=== PATIENT | female | born 1955 | race Caucasian/White ===

== ENCOUNTER 2017-11-19 14:20 | Inpatient (IN) ==
--- NOTE | 2017-11-19 14:56 | Emergency Department Note ---
Disposition Clinical Impression: Elevated troponin Chest pain Qualifiers: Chest pain type: other chest pain Qualified Code(s): R07.89 - Other chest pain Disposition: Admitted As Inpatient Condition: Good Time of Disposition: 16:18 Chest Pain HPI - General Chief Complaint: ED Chest Pain Stated Complaint: CP Time Seen by Provider: 11/19/17 14:24 Source: patient, EMS Mode of arrival: ambulatory Limitations: no limitations Vital Signs Reviewed: Yes Nursing Notes Reviewed: Yes - History of Present Illness HPI Narrative: Patient is a 61-year-old female with past medical history of diabetes, hypertension, hyperlipidemia. She presents today as a transfer from the [facility] due to chest pain and elevated troponin level. The patient herself states that over the past week, she has had midsternal chest discomfort described as a pressure that radiates up to bilateral jaws and right arm. She states that this happens both at rest and with exertion, lasts for about 20-30 minutes and goes away. Also has associated shortness of breath, nausea, sweating during these episodes. Rates it a 10 out of 10 when occurring. She states that she had 2 episodes of this chest pain today that both occurred at rest with the above description. One occurred around 9:30 AM and lasted 30 minutes. The second occurred around 12 or 12:30 and lasted 20-30 minutes. She states that she went to the [facility], was given aspirin. She has not had any nitroglycerin at this time. She currently rates her pain as 0 out of 10. She has had no return of her chest pain since around 12:30 today. Denies any current shortness breath, nausea, vomiting, fevers, diarrhea, abdominal pain , dysuria, hematuria. Denies any history of WI or cardiac stents. Severity scale (1-10): 5 - Related Data Home Medications Medication Instructions Recorded Confirmed ALPRAZolam [Xanax 0.5 MG Tablet] 0.5 mg PO QID 11/19/17 11/19/17 Alendronate Sodium [Fosamax] 70 mg PO QWEEK 11/19/17 11/19/17 Aspirin [Lo-Dose Aspirin EC] 81 mg PO DAILY 11/19/17 11/19/17 Bisacodyl [Dulcolax] 10 mg RC DAILY PRN 11/19/17 11/19/17 Cetirizine HCl [24Hour Allergy] 10 mg PO DAILY 11/19/17 11/19/17 Docusate [Colace] 100 mg PO BID 11/19/17 11/19/17 Gemfibrozil [Lopid] 600 mg PO BIDWM 11/19/17 11/19/17 GlipiZIDE [Glipizide ER] 10 mg PO DAILY 11/19/17 11/19/17 Ibuprofen [Advil] 200 mg PO DAILY PRN 11/19/17 11/19/17 Levothyroxine [Synthroid] 50 mcg PO 0630 11/19/17 11/19/17 Lisinopril [Zestril] 20 mg PO DAILY 11/19/17 11/19/17 Omeprazole [PriLOSEC] 20 mg PO BIDAC 11/19/17 11/19/17 Ranitidine HCl [Acid Mastic Floor Layer] 150 mg PO HS 11/19/17 11/19/17 Saxagliptin HCl [Onglyza] 5 mg PO BID 11/19/17 11/19/17 Trazodone HCl 200 mg PO HS 11/19/17 11/19/17 buPROPion HCl [Zyban] 150 mg PO BID 11/19/17 11/19/17 cloNIDine HCl [Clonidine HCl] 0.2 mg PO TID 11/19/17 11/19/17 hydroCHLOROthiazide 25 mg PO DAILY 11/19/17 11/19/17 [Hydrochlorothiazide] Allergies Allergy/AdvReac Type Severity Reaction Status Date / Time metformin AdvReac See Verified 11/19/17 16:27 Comments All systems ED: reviewed and negative except as stated. Constitutional: Reports: other (diaphoresis). Denies: fever Cardiovascular: Reports: chest pain. Denies: palpitations Respiratory: Reports: dyspnea. Denies: cough Gastrointestinal: Reports: nausea. Denies: abdominal pain, diarrhea, constipation Genitourinary: Denies: urgency, dysuria Neurological: Denies: headache, weakness, numbness Chest Pain PMH - Past Medical History Medical history: Reports: COPD, diabetes, GERD, hypertension, osteoporosis, thyroid disease Psychiatric history: Reports: anxiety, bipolar, depression, panic disorder - Social History Smoking Status: Current every day smoker Alcohol use: Reports: occasionally Drug use: Reports: none Physical Exam - General Limitations: no limitations General appearance: alert - Head Head exam: atraumatic, normocephalic, normal inspection - Eye Eye exam: Present: normal appearance, PERRL, EOMI - ENT ENT exam: normal exam, normal oropharynx, mucous membranes moist - Neck Neck exam: Present: normal inspection, full ROM, trachea midline - Chest Chest inspection: Present: normal inspection, symmetric chest wall rise - Respiratory Respiratory exam: Present: normal lung sounds bilaterally - Cardiovascular Cardiovascular exam: Present: regular rate, normal rhythm, normal heart sounds - Abdominal Exam Abdominal exam: Present: soft, Non-Tender. Absent: tenderness, distention, guarding, rebound, rigidity - Extremities Exam Extremities exam: Present: normal inspection, full ROM. Absent: tenderness, pedal edema - Neurological Exam Neurological exam: Present: alert, oriented X3 - Psychiatric Psychiatric exam: Present: normal affect, normal mood - Skin Skin exam: Present: warm, dry, intact, normal color Course Course Narrative: Vitals within normal limits. Physical exam benign, heart regular rate and rhythm, lungs clear to auscultation, abdomen soft and nontender. Blood work from the [facility] shows elevated troponin at 0.45. Basic labs from the [facility] shows white blood cell count of 6.7, hemoglobin 13.5, hematocrit 39.5, platelets 224. Creatinine 1.07. Chest x-ray shows trace bilateral pleural effusions but no evidence of focal infiltrate. We will repeat troponin here. Again, patient currently rates her chest pain as 0 out of 10. Aspirin has artery been given. EKG shows chronic ST elevation in lead 2 , 3, aVF compared to previous EKG in 2006. However, there are ST elevations in V3 through V6 with a new T-wave inversion in lead V6. I talk with balloon design printer , Dr. Delgadillo, discussed patient's case, vitals, lab work with elevated troponin and new ST elevations. Since patient is currently not having any chest pain or shortness of breath, he did not feel that heart catheter was necessary at this time. He did recommend starting heparin if there were no contraindications. I went over contraindications with the patient and her currently none. We will start the patient on heparin drip. Currently waiting on repeat troponin and then will admit the patient to medicine. Consult for cardiology has been placed. Vital Signs Temperature 98.3 F 11/19/17 14:22 Pulse Rate 58 11/19/17 14:22 Respiratory Rate 16 11/19/17 14:22 Blood Pressure 122/55 11/19/17 14:22 O2 Sat by Pulse Oximetry 96 11/19/17 14:22 Temperature 98.3 F 11/19/17 14:22 Pulse Rate 58 11/19/17 14:22 Respiratory Rate 16 11/19/17 14:22 Blood Pressure 122/55 11/19/17 14:22 O2 Sat by Pulse Oximetry 97 11/19/17 14:32 Oxygen Delivery Oxygen Delivery Room Air Chest Pain - MDM Narrative Medical decision making narrative: Vitals within normal limits. Physical exam benign, heart regular rate and rhythm, lungs clear to auscultation, abdomen soft and nontender. Blood work from the [facility] shows elevated troponin at 0.45. Basic labs from the [facility] shows white blood cell count of 6.7, hemoglobin 13.5, hematocrit 39.5, platelets 224. Creatinine 1.07. Chest x-ray shows trace bilateral pleural effusions but no evidence of focal infiltrate. We will repeat troponin here. Again, patient currently rates her chest pain as 0 out of 10. Aspirin has artery been given. EKG shows chronic ST elevation in lead 2 , 3, aVF compared to previous EKG in 2006. However, there are ST elevations in V3 through V6 with a new T-wave inversion in lead V6. I talk with balloon design printer , Dr. Delgadillo, discussed patient's case, vitals, lab work with elevated troponin and new ST elevations. Since patient is currently not having any chest pain or shortness of breath, he did not feel that heart catheter was necessary at this time. He did recommend starting heparin if there were no contraindications. I went over contraindications with the patient and her currently none. We will start the patient on heparin drip. Currently waiting on repeat troponin and then will admit the patient to medicine. Consult for cardiology has been placed. 15:23 Trop elevated at 0.42. Will proceed with above plan and admit patient for further chest pain workup. - Medical Records Medical records reviewed: Yes I reviewed the patient's medical records. - Lab Data Lab results reviewed: Yes I reviewed the patient's lab results. Lab Results 11/19/17 11/19/17 Range/Units 14:39 16:35 PT 10.6 (9.4-12.1) Seconds INR 1.0 APTT 33.4 (26.0-36.0) Seconds Troponin I 0.42 H* (< 0.04) ng/mL - Radiology Data Radiology results reviewed: Yes I reviewed the patient's radiology results. - EKG Data EKG attestation: Yes I reviewed and interpreted this EKG. EKG results narrative: 11/19/2017 at 14:34. Sinus bradycardia. Rate 57. SC 150. QRS 93. QTC 415. Normal axis. ST elevation in 2, 3, aVF that is chronic compared to old EKG on . ST elevation in V3, V4, V5, V6 with a new T-wave inversion in V6 that is new from previous EKG on 10/06/2005. Heart Score - Score History: Highly Suspicious EKG: Non Specific repolarisation Disturbance Age: 45-65 Risk Factors: Equal/Greater than 3 risk factor or history of atherosclerotic disease Troponin: Greater than 3x normal limit HEART Score Total: 8 S.B.A.R. - S.B.A.R. Situation: Demographics, MOA Background: Presenting Complaint, Relevant PMH, Meds, & Allergies Assessment: Vital Signs, Course and respsone to treatment, Exam Concerns, Patient/Family Expectation, Pertinant Lab Results Recommendation: Barrier(s) to disposition, Recommendation based on pending studies, treatments, or consults S.B.A.R. Report Given to: Dr. Aldridge
--- NOTE | 2017-11-19 15:44 | Emergency Department Note ---
Disposition Clinical Impression: Elevated troponin Chest pain Qualifiers: Chest pain type: unspecified Qualified Code(s): R07.9 - Chest pain, unspecified Disposition: Admitted As Inpatient [facility]Primary Care Provider[facility] - Forms: ED Satisfaction Letter General Adult HPI - General Chief complaint: ED Chest Pain Stated complaint: CP Time Seen by Provider: 11/19/17 14:24 Source: patient, EMS Mode of arrival: ambulatory Limitations: no limitations - History of Present Illness Pain Scale: 5 - Related Data Allergies Allergy/AdvReac Type Severity Reaction Status Date / Time metformin AdvReac See Verified 11/19/17 14:22 Comments Constitutional: Reports: other (diaphoresis). Denies: fever Cardiovascular: Reports: chest pain. Denies: palpitations Respiratory: Reports: dyspnea. Denies: cough Gastrointestinal: Reports: nausea. Denies: abdominal pain, diarrhea, constipation Genitourinary: Denies: urgency, dysuria Neurological: Denies: headache, weakness, numbness Past Medical History - Past Medical History Medical history: Reports: COPD, diabetes, GERD, hypertension, osteoporosis, thyroid disease Psychiatric history: Reports: anxiety, bipolar, depression, panic disorder - Social History Smoking Status: Current every day smoker Alcohol use: Reports: occasionally Drug use: Reports: none Physical Exam - General Limitations: no limitations General appearance: alert Course Vital Signs Temperature 98.3 F 11/19/17 14:22 Pulse Rate 58 11/19/17 14:22 Respiratory Rate 16 11/19/17 14:22 Blood Pressure 122/55 11/19/17 14:22 O2 Sat by Pulse Oximetry 96 11/19/17 14:22 Temperature 98.3 F 11/19/17 14:22 Pulse Rate 58 11/19/17 14:22 Respiratory Rate 16 11/19/17 14:22 Blood Pressure 122/55 11/19/17 14:22 O2 Sat by Pulse Oximetry 97 11/19/17 14:32 Oxygen Delivery Oxygen Delivery Room Air Medical Decision Making - Lab Data Lab Results 11/19/17 Range/Units 14:39 Troponin I 0.42 H* (< 0.04) ng/mL Critical Care Time Critical Care Time: Yes Total Critical Care Time: 35 Attestation: Critical care performed: Time is exclusive of separately billable procedures. Time includes: direct patient care, patient reassessment, coordination of patient care, interpretation of data (laboratory data, radiology data, and respiratory data), review of patient's medical records, medical consultation and documentation of patient care. Procedures included in critical care time: Procedures excluded from critical care time: Attestation Statement - Attestation Attestation: I examined this patient and my medical decision-making was reviewed with the Resident Physician. I agree with the documented findings, disposition and treatment plan as described except to the extent set forth below. Patient to the ED with chest pain. She has been having some intermittent episodes per week. Currently pain free. Transferred from the [place] for an elevated troponin. Patient is in no acute distress on examination with clear lungs and heart regular rate and rhythm. Plan. Repeat troponin here still elevated. She has been discussed with cardiology. Starting her on a heparin drip. Patient is pain-free. She does have some acute changes on her EKG. Admitting for further cardiac workup.
[2017-11-19] MEDS ORDERED: *HR* Heparin 5,000 UNIT/ML VIAL IVP ONE (15:49)
[2017-11-19] MEDS ORDERED: *HR* Heparin 5,000 UNIT/ML VIAL IVP PRN ×2 (15:49)
[2017-11-19 16:57] LABS: Prothrombin Time 10.6 Seconds (9.4-12.1)
[2017-11-19] MEDS ORDERED: Naloxone 0.4 MG/ML INJ IVP PRN (16:57)
[2017-11-19 17:00] LABS: Activated Partial Thrombo Time 33.4 Seconds (26.0-36.0)
[2017-11-19] MEDS ORDERED: Ipratropium/Albuterol Neb 3 ML IH PRN (17:09)
[2017-11-19] MEDS: Heparin 25,000 UNIT/500 ML D5W 25,000 UNIT/500 ML BAG IVC SCH (17:10)
[2017-11-19] MEDS ORDERED: Bisacodyl 10 MG RECTAL SUPPOSITORY RC PRN (17:12)
[2017-11-19] MEDS ORDERED: Dextrose Gel 15 GM/37.5 ML TUBE PO PRN ×2 (17:13)
[2017-11-19] MEDS ORDERED: *HR* Dextrose 50 % in Water (Syg) 50 ML SYRINGE IVP PRN (17:13)
[2017-11-19] MEDS ORDERED: D5% in Water 1,000 ML IVC PRN (17:13)
[2017-11-19] MEDS ORDERED: Nitroglycerin 0.4 MG TAB.SUBL SL PRN (17:14)
[2017-11-19] MEDS ORDERED: NON-FORMULARY MEDICATION 1 EACH EACH (Alendronate Sodium [Fosamax] 70 MG) PO SCH (17:15)
--- NOTE | 2017-11-19 17:28 | Internal Med History&Physical ---
Date of Encounter: 11/19/17 Time of Encounter: 16:30 Internal Medicine - H&P: HPI Chief complaint: CP Admitted From: Emergency Dept Plans for Post Hospital Care: Home History of present illness: Ms. Causey is a 61 year old female w/PMH of COPD, diabetes, GERD, HTN, osteoporosis, and thyroid disease presents from the ED with chief complaint of chest pain for the past 2 weeks that she describes as constant that became worse this morning. Pain is described as centralized pressure that radiates up to her neck and bilateral jaws, bilateral ears, and right arm accompanied by headache. No alleviating or aggravating factors. Patient was transferred from [facility] due to elevated troponin of 0.42. Associated symptoms: SOB, nausea, diaphoresis. Patient denies recent cardiac workup. Reports intermittent chest pain, weakness, nausea, and vomiting but denies recent illness, fever, chills, changes in vision, palpitations, abdominal pain, diarrhea, constipation, dizziness, lightheadedness, pre-syncope, or syncope. Past Med Surg Social Fam HX - Past Medical History Source: patient, old records reviewed Medical history: COPD, diabetes, GERD, hypertension, osteoporosis, thyroid disease Psychiatric history: anxiety, bipolar, depression, panic disorder - Social History Smoking Status: Current every day smoker Alcohol use: occasionally Drug use: none Current living situation: Home Activity Level: Independent ambulation Recent Out of Country Travel Within the Last 8 Weeks: No Exposure or Possible Exposure to Illness During Travel: No - Family History Father Race: Family Member Ethnicity: Non- Living Status: Age at : 67 Cause of : Metastatic cancer Hx Family Cancer: Yes (Metastatic) Mother Race: Family Member Ethnicity: Non- Living Status: Age at : 67 Cause of : AL Hx Family Cardiac Disorders: Yes (AL, HD) Brother History Unknown: Yes Race: Family Member Ethnicity: Non- Living Status: Still Living Sister History Unknown: Yes Race: Family Member Ethnicity: Non- Living Status: Still Living Internal Medicine - H&P: Meds ALPRAZolam [Xanax 0.5 MG Tablet] 0.5 mg PO QID 11/19/17 [History] Alendronate Sodium [Fosamax] 70 mg PO QWEEK 11/19/17 [History] Aspirin [Lo-Dose Aspirin EC] 81 mg PO DAILY 11/19/17 [History] Bisacodyl [Dulcolax] 10 mg RC DAILY PRN 11/19/17 [History] Cetirizine HCl [24Hour Allergy] 10 mg PO DAILY 11/19/17 [History] Docusate [Colace] 100 mg PO BID 11/19/17 [History] Gemfibrozil [Lopid] 600 mg PO BIDWM 11/19/17 [History] GlipiZIDE [Glipizide ER] 10 mg PO DAILY 11/19/17 [History] Ibuprofen [Advil] 200 mg PO DAILY PRN 11/19/17 [History] Levothyroxine [Synthroid] 50 mcg PO 0630 11/19/17 [History] Lisinopril [Zestril] 20 mg PO DAILY 11/19/17 [History] Omeprazole [PriLOSEC] 20 mg PO BIDAC 11/19/17 [History] Ranitidine HCl [Acid Materials Branch Chief] 150 mg PO HS 11/19/17 [History] Saxagliptin HCl [Onglyza] 5 mg PO BID 11/19/17 [History] Trazodone HCl 200 mg PO HS 11/19/17 [History] buPROPion HCl [Zyban] 150 mg PO BID 11/19/17 [History] cloNIDine HCl [Clonidine HCl] 0.2 mg PO TID 11/19/17 [History] hydroCHLOROthiazide [Hydrochlorothiazide] 25 mg PO DAILY 11/19/17 [History] 3 Allergy/AdvReac Type Severity Reaction Status Date / Time metformin AdvReac See Verified 11/19/17 16:27 Comments All Systems PM: A 10-system review of systems was performed and is negative for pertinent findings except as documented above in the HPI. - Constitutional Constitutional: as per HPI, fatigue, weakness, no chills, no fever(s), no night sweats - EENT Eyes: no change in vision, no discharge, no pain, no photophobia Ears: no ear discharge, no ear pain, no tinnitus Nose, mouth and throat: no dysphagia, no nasal discharge, no neck pain, no sore throat - Breasts Breasts: as per HPI - Cardiovascular Cardiovascular ROS IM: as per HPI, chest pain, diaphoresis, dyspnea, dyspnea on exertion, no lightheadedness, no palpitations, no syncope - Respiratory Respiratory: as per HPI, dyspnea, dyspnea on exertion, no cough, no wheezing, no excessive phlegm production - Gastrointestinal Gastrointestinal: as per HPI, nausea, vomiting, no abdominal pain, no diarrhea, no hematemesis, no hematochezia, no melena - Genitourinary Genitourinary: no change in urinary stream, no dysuria, no flank pain, no hematuria Menstruation: as per HPI - Musculoskeletal Musculoskeletal ROS IM: no numbness, no tingling - Integumentary Integumentary IM: no rash, no unusual bruising - Neurological Neurological ROS: as per HPI, weakness, no confusion, no convulsions, no focal weakness, no numbness, no tingling, no tremor(s) - Psychiatric Psychiatric: as per HPI - Endocrine Endocrine IM: as per HPI - Hematologic/Lymphatic Hematologic/Lymphatic: no easy bruising - Allergic/Immunologic Allergic/Immunologic: as per HPI - Constitutional Vitals: Temp Pulse Resp BP Pulse Ox 98.3 F 58 16 122/55 97 11/19/17 14:22 11/19/17 14:22 11/19/17 14:22 11/19/17 14:22 11/19/17 14:32 General appearance: Present: cooperative, mild distress, A&O X 3, pleasant, obese, answers questions appropriately - Head Head exam: Present: atraumatic, normocephalic - Eye Eye exam: Present: PERRL, conjuntiva pink, sclera anicteric Pupils: Present: PERRL - ENT ENT exam: Present: normal exam - Neck Neck exam general surgery: Present: normal inspection, supple, trachea midline. Absent: lymphadenopathy - Respiratory Respiratory exam: Present: CTAB. Absent: accessory muscle use, rales, rhonchi, wheezes - Cardiovascular Cardiovascular exam: Present: bradycardia, +S1, +S2. Absent: diastolic murmur, gallop, rubs, systolic murmur - GI/Abdominal GI/Abdominal exam: Present: normal bowel sounds, soft, no peritoneal signs. Absent: distended, tenderness - Rectal Rectal exam: Present: deferred - Additional comments: exam deferred. - Extremities Exam Extremities exam: Present: warm, radial pulses palpable and symmetrical. Absent : calf tenderness, cyanotic, pedal edema - Back Exam Back exam: Present: normal inspection - Neurological Exam Neurological exam: Present: CN II-XII intact, oriented X3, no focal deficits. Absent: pronater drift, facial droop, speech deficit - Psychiatric Psychiatric exam: Present: normal affect, normal mood - Skin Skin exam: Present: dry, intact Internal Med - H&P Results - EKG Data EKG shows normal: sinus rhythm Rate: bradycardia - EKG Data Prior EKG available for review: yes Interpretation IM: suggestive of ischemia EKG comments: 11/19/17 17:38 EKG dated 10/06/05 show sinus bradycardia and normal ECG except for rate. EKG dated 11/19/17 shows sinus bradycardia with ST deviation and moderate T- wave abnormality. Consider lateral ischemia. - Assessment and plan (1) Chest pain Current Visit: Yes Status: Acute Assessment and plan: Acute CP for the past two weeks that pt. reports as becoming much worse this morning. States she thought sx may be GERD-related and this is why she waited. Describes CP as centralized pressure with radiation up to neck and bilateral jaws, bilateral ears, and right arm. Associated symptoms: Headache, SOB, nausea , and diaphoresis. Denies recent cardiac workup. Cardiology consulted in the ED and I appreciate the consult. Patient placed on low-dose heparin drip due to initial troponin 0.42. Aspirin. Continue statin. Nitroglycerin when necessary. Continuous cardiac telemetry. Echocardiogram. Supplemental O2 with titration and SPO2 monitoring. Lipid panel in a.m. labs. Patient discussed with Dr. Aldridge who agrees w/plan od care. Pt. is high risk for further morbidity d/t current CP and sx, recurrent sx for two weeks, familial hx of AL, hx; and risk factors of DM, HTN, and current tobacco abuse. Inpatient. Qualifiers: Chest pain type: other chest pain Qualified Code(s): R07.89 - Other chest pain; R07.8 - Other chest pain (2) Elevated troponin Current Visit: Yes Status: Acute Assessment and plan: Acutely elevated initial troponin of 0.42 on admission. Will trend x2. Pt. reports intermittent CP. Pt. placed on low-dose heparin drip per Cardiology. Will monitor pt. for signs of bleeding. Nitro SL PRN. Aspirin. Continue statin. Continuous cardiac telemetry. (3) COPD (chronic obstructive pulmonary disease) Current Visit: Yes Status: Chronic Assessment and plan: Hx of chronic COPD. Stable. DuoNebs Q6HR PRN. Supplemental O2 w/titration and SpO2 monitoring. Qualifiers: COPD type: unspecified COPD Qualified Code(s): J44.9 - Chronic obstructive pulmonary disease, unspecified (4) GERD (gastroesophageal reflux disease) Current Visit: Yes Status: Chronic Assessment and plan: Hx of chronic GERD. IVP Protonix 40 mg BID. IVP Zofran 4 mg. Q6HR PRN for N/V. Qualifiers: Esophagitis presence: esophagitis presence not specified Qualified Code(s) : K21.9 - Gastro-esophageal reflux disease without esophagitis (5) Diabetes Current Visit: Yes Status: Chronic Assessment and plan: Hx of chronic diabetes controlled by oral anti-hyperglycemic medications. Hold patient's oral antihyperglycemic medications and administer low-dose correction sliding scale insulin and hypoglycemic protocol. BG checks before meals at bedtime. A1c in a.m. labs. Qualifiers: Diabetes mellitus type: type 2 Diabetes mellitus director of field coordination insulin use: without halfway use Diabetes mellitus complication status: with unspecified complications Qualified Code(s): E11.8 - Type 2 diabetes mellitus with unspecified complications (6) HTN (hypertension) Current Visit: Yes Status: Chronic Assessment and plan: Hx of chronic HTN. Monitor pt. and VS. Continue patient's hydrochlorothiazide and Zestril. Qualifiers: Hypertension type: essential hypertension Qualified Code(s): I10 - Essential (primary) hypertension (7) Thyroid disease Current Visit: Yes Status: Chronic Assessment and plan: Hx of chronic thyroid disease. TSH and Free T4 in a.m. labs. Continue pts. Synthroid. (8) DVT prophylaxis Current Visit: Yes Status: Acute Assessment and plan: Pt. placed on heparin drip for currently elevated troponin of 0.42. Monitor pt. for signs of bleeding. - Time Spent With Patient Total time spent is greater than 50% in coordination of care (as documented) at patient's floor/unit and/or counseling patient: Greater than 35 minutes
[2017-11-19 19:24] LABS: Basophils # 0.1 K/mcL (0.0-0.2); Basophils % 0.6 %; Eosinophils # 0.3 K/mcL (0.0-0.6); Eosinophils % 3.2 %; Hematocrit 42.4 % (35.3-44.9); Hemoglobin 14.1 g/dL (11.5-15.4); Immature Granulocytes % 0.6 % (0-4); Lymphocytes # 2.8 K/mcL (0.6-4.6); Lymphocytes % 34.2 %; Mean Corpuscular HGB Conc 33.3 g/dL (31.6-35.5); Mean Corpuscular Volume 90.2 fL (83.0-100.0); Mean Platelet Volume 10.7 fL (9.4-12.4); Monocytes # 0.6 K/mcL (0.0-1.3); Monocytes % 6.9 %; Neutrophils # 4.5 K/mcL (1.6-8.9); Platelet Count 255 K/mcL (140-400); Red Cell Distribution Width 12.5 % (11.5-14.5); Segmented Neutrophils % 54.5 %
[2017-11-19] MEDS: Pantoprazole 40 MG VIAL IVP SCH (19:42)
[2017-11-19 19:48] LABS: Alanine Aminotransferase 16 Units/L (7-52); Albumin 4.5 g/dL (3.5-5.7); Albumin/Globulin Ratio 1.5 (1.1-2.2); Alkaline Phosphatase 106 Units/L (34-104); Aspartate Amino Transferase 13 Units/L (13-39); BUN/Creatinine Ratio 35 (6-26); Bilirubin,Total 0.4 mg/dL (0.3-1.0); Blood Urea Nitrogen 26 mg/dL (8-23); Calcium 10.6 mg/dL (8.6-10.3); Carbon Dioxide 26 mEq/L (23-29); Chloride 101 mEq/L (98-107); Glucose 236 mg/dL (70-105); Osmolality,Calculated 290 (280-300); Potassium 4.2 mEq/L (3.5-5.1); Sodium 134 mEq/L (136-145); Total Protein 7.5 g/dL (6.4-8.9); eGFR For African Americans > 60 (> 60); eGFR For Non-African Americans > 60 (> 60)
[2017-11-19] MEDS: cloNIDine HCl 0.1 MG TABLET PO SCH (20:14)
[2017-11-19] MEDS: BuPROPion SR (12 HR) 150 MG TABLET PO SCH (20:14)
[2017-11-19] MEDS: ALPRAZolam 0.5 MG TABLET PO SCH (20:17)
[2017-11-19] MEDS: Ondansetron 4 MG/2 ML VIAL IVP PRN (21:44)
[2017-11-19] MEDS: Insulin LISPRO 300 UNITS/3 ML VIAL SQ SCH (21:44)
[2017-11-19] MEDS: traZODone 50 MG TABLET PO SCH (21:51)
[2017-11-20] MEDS: Pantoprazole 40 MG VIAL IVP SCH ×2 (05:59→17:11)
[2017-11-20] MEDS: Ondansetron 4 MG/2 ML VIAL IVP PRN (06:57)
[2017-11-20] MEDS ORDERED: *HR* HYDROcodone/Acet 5/325 mg TABLET PO ONE (07:03)
[2017-11-20 07:30] LABS: Alanine Aminotransferase 13 Units/L (7-52); Albumin 3.6 g/dL (3.5-5.7); Albumin/Globulin Ratio 1.3 (1.1-2.2); Alkaline Phosphatase 97 Units/L (34-104); Aspartate Amino Transferase 13 Units/L (13-39); BUN/Creatinine Ratio 34 (6-26); Bilirubin,Total 0.3 mg/dL (0.3-1.0); Blood Urea Nitrogen 27 mg/dL (8-23); Carbon Dioxide 24 mEq/L (23-29); Chloride 103 mEq/L (98-107); Chol/HDL Ratio 8.8 (0-4.9); Cholesterol 315 mg/dL (< 200); Globulin 2.8 g/dL (2.4-3.5); Glucose 273 mg/dL (70-105); HDL Cholesterol 36 mg/dL (40-59); Magnesium 1.7 mg/dL (1.6-2.6); Osmolality,Calculated 297 (280-300); Potassium 4.1 mEq/L (3.5-5.1); Sodium 136 mEq/L (136-145); Total Protein 6.4 g/dL (6.4-8.9); Triglycerides 712 mg/dL (< 150); eGFR For African Americans > 60 (> 60); eGFR For Non-African Americans > 60 (> 60)
[2017-11-20 07:34] LABS: Basophils # 0.1 K/mcL (0.0-0.2); Basophils % 0.8 %; Eosinophils # 0.2 K/mcL (0.0-0.6); Hematocrit 39.5 % (35.3-44.9); Hemoglobin 13.4 g/dL (11.5-15.4); Immature Granulocytes % 0.3 % (0-4); Lymphocytes # 2.6 K/mcL (0.6-4.6); Lymphocytes % 43.2 %; Mean Corpuscular HGB Conc 33.9 g/dL (31.6-35.5); Mean Corpuscular Hemoglobin 30.8 pg (28.0-33.3); Mean Corpuscular Volume 90.8 fL (83.0-100.0); Mean Platelet Volume 10.9 fL (9.4-12.4); Monocytes # 0.4 K/mcL (0.0-1.3); Monocytes % 7.3 %; Neutrophils # 2.7 K/mcL (1.6-8.9); Platelet Count 218 K/mcL (140-400); Red Blood Count 4.35 M/mcL (3.82-4.97); Red Cell Distribution Width 12.4 % (11.5-14.5); Segmented Neutrophils % 45.4 %
[2017-11-20 07:43] LABS: Thyroid Stimulating Hormone 3.513 mcIU/mL (0.340-5.600)
[2017-11-20 08:07] LABS: Activated Partial Thrombo Time 119.4 Seconds (26.0-36.0)
[2017-11-20] MEDS: Loratadine 10 MG TABLET PO SCH (08:09)
[2017-11-20] MEDS: hydroCHLOROthiazide 25 MG TABLET PO SCH (08:09)
[2017-11-20] MEDS: Aspirin Enteric Coated 81 MG Tablet PO SCH (08:09)
[2017-11-20] MEDS: ALPRAZolam 0.5 MG TABLET PO SCH ×4 (08:09→19:51)
[2017-11-20] MEDS: cloNIDine HCl 0.1 MG TABLET PO SCH ×3 (08:09→22:40)
[2017-11-20] MEDS: BuPROPion SR (12 HR) 150 MG TABLET PO SCH ×2 (08:10→19:52)
[2017-11-20] MEDS: Insulin LISPRO 300 UNITS/3 ML VIAL SQ SCH ×4 (08:10→20:35)
[2017-11-20 08:13] LABS: Heparin anti-factor XA UFH 0.69 IU/mL (0.30-0.70)
[2017-11-20] MEDS ORDERED: Lisinopril 20 MG TABLET PO SCH (09:00)
[2017-11-20] MEDS ORDERED: Heparin 1,000 UNITS/500 mL 500 ML ONE (10:06)
[2017-11-20] MEDS ORDERED: 0.9 % Sodium Chloride 1,000 ML ONE ×2 (10:06→10:29)
[2017-11-20] MEDS ORDERED: *HR* Heparin 10,000 UNIT/10 ML VIAL ONE (10:06)
[2017-11-20] MEDS ORDERED: ISOVUE-370 200 ML INFUS..BTL IV ONE (10:06)
--- NOTE | 2017-11-20 10:07 | Cardiology History & Physical ---
Date of Encounter: 11/20/17 Time of Encounter: 10:00 Assessment and Plan (1) NSTEMI (non-ST elevated myocardial infarction) Current Visit: Yes Status: Acute A/R/B of C discussed with her including 1% chance of ME//CVA/CABG/TOMASZ/ bleeding. Smoking cessation counseled. Pt aware and agreeable with proceeding. The assessment and plan as outlined above was discussed with the patient and/or family members who expressed understanding and agreement. All questions were answered. (2) COPD (chronic obstructive pulmonary disease) Current Visit: Yes Status: Chronic Smoking cessation counseled. The assessment and plan as outlined above was discussed with the patient and/or family members who expressed understanding and agreement. All questions were answered. Qualifiers: COPD type: unspecified COPD Qualified Code(s): J44.9 - Chronic obstructive pulmonary disease, unspecified (3) Diabetes Current Visit: Yes Status: Chronic The assessment and plan as outlined above was discussed with the patient and/or family members who expressed understanding and agreement. All questions were answered. 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 All questions were answered. Qualifiers: Hypertension type: essential hypertension Qualified Code(s): I10 - Essential (primary) hypertension History of Present Illness HPI: Ms. Causey is a 61 year old female with no previous cardiac history but is a smoking diabetic with dyslipidemia presents with 2-3 week history of retrosternal chest pressure radiating into her jaw that progressively worsened culminating in her presentation at our ED with findings of NSTEMI. Symptoms worsened with exertion and improved with rest. She denies syncope, dizziness, or palpitations. Past Med Surg Social Fam HX - Past Medical History Medical history: COPD, diabetes, GERD, hypertension, osteoporosis, thyroid disease Psychiatric history: anxiety, bipolar, depression, panic disorder - Social History Smoking Status: Current every day smoker Packs per day: 1 Alcohol use: occasionally Drug use: none - Family History Father Race: Family Member Ethnicity: Non- Living Status: Age at : 67 Cause of : Metastatic cancer Hx Family Respiratory Disorders: Yes (lung cancer with mets) Hx Family Cancer: Yes (Metastatic) Mother Race: Family Member Ethnicity: Non- Living Status: Age at : 67 Cause of : ME Hx Family Cardiac Disorders: Yes Brother History Unknown: Yes Race: Family Member Ethnicity: Non- Living Status: Still Living Sister History Unknown: Yes Race: Family Member Ethnicity: Non- Living Status: Still Living Medications and Allergies ALPRAZolam [Xanax 0.5 MG Tablet] 0.5 mg PO QID 11/19/17 [History] Alendronate Sodium [Fosamax] 70 mg PO QWEEK 11/19/17 [History] Aspirin [Lo-Dose Aspirin EC] 81 mg PO DAILY 11/19/17 [History] Bisacodyl [Dulcolax] 10 mg RC DAILY PRN 11/19/17 [History] Cetirizine HCl [24Hour Allergy] 10 mg PO DAILY 11/19/17 [History] Docusate [Colace] 100 mg PO BID 11/19/17 [History] Gemfibrozil [Lopid] 600 mg PO BIDWM 11/19/17 [History] GlipiZIDE [Glipizide ER] 10 mg PO DAILY 11/19/17 [History] Ibuprofen [Advil] 200 mg PO DAILY PRN 11/19/17 [History] Levothyroxine [Synthroid] 50 mcg PO 0630 11/19/17 [History] Lisinopril [Zestril] 20 mg PO DAILY 11/19/17 [History] Omeprazole [PriLOSEC] 20 mg PO BIDAC 11/19/17 [History] Ranitidine HCl [Acid Sales Representative [employer]] 150 mg PO HS 11/19/17 [History] Saxagliptin HCl [Onglyza] 5 mg PO BID 11/19/17 [History] Trazodone HCl 200 mg PO HS 11/19/17 [History] buPROPion HCl [Zyban] 150 mg PO BID 11/19/17 [History] cloNIDine HCl [Clonidine HCl] 0.2 mg PO TID 11/19/17 [History] hydroCHLOROthiazide [Hydrochlorothiazide] 25 mg PO DAILY 11/19/17 [History] 3 Allergy/AdvReac Type Severity Reaction Status Date / Time metformin AdvReac See Verified 11/19/17 16:27 Comments All Systems Review: The remainder of the systems were reviewed and are negative - Constitutional Constitutional: no chills, no fever(s) - EENT Eyes: no blurred vision, no loss of vision Nose, mouth and throat: no dysphagia, no epistaxis - Cardiovascular Cardiovascular: chest pain at rest, chest pain with exertion - Respiratory Respiratory: no cough, no hemoptysis - Gastrointestinal Gastrointestinal: no hematemesis, no hematochezia - Genitourinary Genitourinary: no hematuria, no nocturia - Musculoskeletal Musculoskeletal: no muscle cramps, no muscle weakness - Integumentary Integumentary: no erythema, no unusual bruising - Neurological Neurological: no syncope, no tingling - Psychiatric Psychiatric: no hallucinations, no panic attacks - Hematological/Lymphatic Hematologic/Lymphatic: no easy bleeding, no easy bruising Physical Examination Vital Signs, Last 4 Hours Temp Pulse Resp BP Pulse Ox 11/20/17 07:30 97.5 F L 62 18 109/66 95 General: Conversant HEENT: Atraumatic Neck: No JVD Cardiac: Reg Rate and Rhythm Lungs: Normal Breath Sounds Neuro: Alert and responsive Abdomen: Soft Skin: No rashes noted on visualized skin Musculoskeletal: No Chest Wall Tenderness Extremities: No Edema Results 11/20/17 06:44 11/20/17 06:44 Lab Results 11/19/17 11/19/17 11/19/17 18:48 18:48 21:25 WBC 8.2 Hgb 14.1 Hct 42.4 Plt Count 255 APTT Sodium 134 L Potassium 4.2 Chloride 101 Carbon Dioxide 26 BUN 26 H Creatinine 0.75 Glucose 236 H Calcium 10.6 H Magnesium Total Bilirubin 0.4 AST 13 ALT 16 Alkaline Phosphatase 106 H Troponin I 0.51 H* TSH 11/19/17 11/20/17 11/20/17 22:31 03:34 06:44 WBC 6.0 Hgb 13.4 Hct 39.5 Plt Count 218 APTT 79.0 H D Sodium Potassium Chloride Carbon Dioxide BUN Creatinine Glucose Calcium Magnesium Total Bilirubin AST ALT Alkaline Phosphatase Troponin I 0.63 H* TSH 11/20/17 11/20/17 11/20/17 06:44 06:44 06:44 WBC Hgb Hct Plt Count APTT 119.4 H* D Sodium 136 Potassium 4.1 Chloride 103 Carbon Dioxide 24 BUN 27 H Creatinine 0.80 Glucose 273 H Calcium 10.0 Magnesium 1.7 Total Bilirubin 0.3 AST 13 ALT 13 Alkaline Phosphatase 97 Troponin I TSH 3.513 - EKG Interpretation EKG results cardiology: personally reviewed, sinus rhythm, no diagnostic ischemia
[2017-11-20 10:13] LABS: Estimated Average Glucose 283 mg/dl; Hemoglobin A1C 11.5 %
[2017-11-20] MEDS ORDERED: *HR* Midazolam HCl 2 MG/2 ML VIAL ONE (10:28)
[2017-11-20] MEDS ORDERED: *HR* FentaNYL (PF) 100 MCG/2 ML VIAL ONE (10:29)
--- NOTE | 2017-11-20 10:45 | Pre-Sedation Evaluation ---
Pre-sedation evaluation - Pre-sedation checklist Date of procedure: 11/20/17 Procedure: Heart cath Recent Vitals: Last Vital Signs Temp 97.5 F L 11/20/17 07:30 Pulse 62 11/20/17 07:30 Resp 18 11/20/17 07:30 BP 109/66 11/20/17 07:30 Pulse Ox 95 11/20/17 07:30 H&P (including ROS) documented in medical record: Yes Previous reaction to sedatives/anesthetics: No Dietary Status: NPO after Midnight Dentition: dentures removed Possible difficult airway: No ASA Classification *see protocol: CLASS IV-Severe systemic disease/constant threat to pt's life Plan of Care: Pt appropriate candidate for procedure/moderate/conscious sedation , Risks/benefits of procedure/sedation discussed w/ patient/family, If not NPO; Risk of intake outweiged by necessity to perform procedure
[2017-11-20] MEDS ORDERED: Nitroglycerin 1,000 MCG/10 ML VIAL IV ONE (10:49)
--- NOTE | 2017-11-20 11:48 | Invasive Diagnostic Lab Proc ---
Name: Celi Causey Date of Study: 11/20/2017 Date: 1955 Ht: 66.1in Medical Record#: [id number] Age: 61 Wt: 187.39lb Gender: Female BSA: 1.95 Order #: [id number] BMI: 30.12 Physicians Procedure Physician: Shailesh James DO Referring MD: Referring MD: Indications Indication Non-Stemi Procedures Performed Procedure L HRT ARTERY/VENTRICLE ANGIO Pre-Procedure Checklist Informed consent is complete signed and on chart. Patient NPO for procedure Plan of Care Patient will tolerate the procedure without complications. Adequate level of comfort will be maintained. Hemodynamics will remain stable Patient will recover from procedure without complications. Respiratory function will be maintained. Cardiac rhythm will remain stable. Patient temperature will be maintained. Patient and/or family have verbalized understanding of the procedure. Patient Education Intravenous Access Time IV Size Location DC'd Fluid/Drip Rate Units RN 20g 1 07/02" Patent On Arrival Lt Arm No Allergies metformin NONE NO KNOWN DRUG ALLERGIES Vital Signs Time BP (mmHg) HR (bpm) O2 Sat. RR (bpm) LOC 10:43 AM / % 5 = Fully awake and oriented or at pre-proc level 10:43 AM / % 4 = Oriented but drowsy 10:58 AM / % 4 = Oriented but drowsy 10:45 AM 117 / 67 59 100 % 10:49 AM 121 / 63 60 100 % 10:54 AM 122 / 57 59 100 % 10:59 AM 111 / 60 60 100 % 11:04 AM 106 / 50 56 100 % 11:10 AM 131 / 71 57 100 % 11:15 AM 140 / 74 58 100 % Procedural Medications Time Medication Dose Units Method Given By 10:46 AM Versed 2 mg Intravenous Kennedy Santana RN 10:43 AM Oxygen 2 L/min nasal cannula Kennedy Santana RN 10:54 AM Lidocaine 2% 10 ml Subcutaneous Shailesh James DO ASA Classification: CLASS IV- Severe systemic that is constant threat to patient's life Chaya Score Preprocedure Postprocedure Activity 2- Moves 4 extremities sustained head lift Activity 2- Moves 4 extremities sustained head lift Circulation 2- SBP +/= 20 points of pre-anesthetic level Circulation 2- SBP +/= 20 points of pre-anesthetic level Consciousness 2- Awake and alert oriented x 3 Consciousness 2- Awake and alert oriented x 3 O2 Saturation 2- Able to maintain O2 satruation of 92% on room air O2 Saturation 2- Able to maintain O2 satruation of 92% on room air Respiratory 2- Able to deep breathe and cough well Respiratory 2- Able to deep breathe and cough well Total Score 10 Total Score 10 Contrast Agent: Isovue Diagnostic Contrast: 75 ml Total Contrast: 75 ml Fluoro Dose: 414 mGy Procedure Log Time Note Enter By 10:31 AM Pt arrived to lab associate 2 at 10:31 cedwards 10:31 AM Patient charges- Angio tray pack, Navilyst 3mm J, Pulse Oximetry and ACIST tubing and transducer cedwards 10:31 AM Physican paged/called 10:31. cedwards 10:31 AM Physican responded and notified patient is ready 10:31 cedwards 10:42 AM CathStat 10:42 AM Case Start 10:43 AM Physician arrived 10:43 cedwards 10:43 AM Meet and greet completed cedwards 10:43 AM Sign in performed according to hospital policy. cedwards 10:43 AM Procedure start 10:43 cedwards 10:43 AM Time: 10:43 Oxygen on at 2 L/min per nasal cannula by Kennedy Santana RN cedwards 10:43 AM Time: 10:43 Patient comfortable and pain free: Yes cedwards 10:43 AM Time: 10:43LOC: 5 = Fully awake and oriented or at pre-proc level cedwards 10:43 AM Vitals capture started with the following parameters, Patient=Adult, Interval=5 min, Initial Kafoouxz=620 mmHg, Deflation Rate=5 mmHg, Cuff placed on Right Arm 10:44 AM Recorded ECG: HR=60 Condition=Condition 1 10:45 AM HR=59 bpm, OWHU=118/67 mmhg, SeJ0=798.0 %, Comment=NSR 10:46 AM Time: 10:46 Versed 2 mg Intravenous Given by Kennedy Santana RN cedwards 10:47 AM ASA Class CLASS IV- Severe systemic that is constant threat to patient's life cedwards 10:48 AM Clinical Presentation: Non-STEMI cedwards 10:49 AM HR=60 bpm, LHPN=219/63 mmhg, HpZ6=483.0 %, Comment=NSR 10:53 AM Pressure channel 2 zeroed. 10:54 AM Time out performed according to hospital policy cedwards 10:54 AM HR=59 bpm, GEGU=001/57 mmhg, MvH5=355.0 %, Comment=SB 10:55 AM Time: 10:54 10 ml Lidocaine 2% to right groin Subcutaneous Given by Shailesh James DO cedwards 10:58 AM Time: 10:43 Patient comfortable and pain free: Yes cedwards 10:58 AM Time: 10:43LOC: 4 = Oriented but drowsy cedwards 10:59 AM HR=60 bpm, LFNB=374/60 mmhg, HrG8=600.0 %, Comment=NSR 11:00 AM Unsuccessful access attempt # 1 into the right Femoral artery. Manual pressure applied to achieve hemostasis.. cedwards 11:03 AM Micro-Introducer Kit utilized for sheath placement cedwards 11:04 AM Access obtained by percutaneous puncture. 6Fr 10cm Terumo [place] sheath placed in right Femoral artery. [id number] cedwards 11:04 AM HR=56 bpm, DMWL=559/50 mmhg, AkZ3=634.0 %, Comment=sb 11:04 AM 6Fr FR 4 catheter inserted over the wire [facility] cedwards 11:04 AM Catheter selectively placed in left ventricle cedwards 11:04 AM Bolus angiogram of left Ventricle complete: hand injection cedwards 11:05 AM 0.035 145cm Navilyst 3mmJ wire [id number] cedwards 11:05 AM Recorded Pressure: LV, HR=56, Condition=Condition 1 (Left Ventricle) LV 111/5/10 11:05 AM Recorded Pressure: LV, HR=57, Condition=Condition 1 (Left Ventricle) LV 130/39/28 11:06 AM Recorded Pressure: Ao, HR=63, Condition=Condition 1 (Aorta) Ao 129/54/88 11:06 AM RCA angiography performed in multiple views. cedwards 11:07 AM Catheter removed cedwards 11:07 AM 6Fr FL 4 catheter inserted over the wire [facility] cedwards 11:07 AM LCA angiography performed in multiple views. cedwards 11:08 AM Lesion found in Mid RCA. Pre Stenosis: 99 Pre MIGUEL Flow: 2: Partial Flow/Perfusion (> 1 but < 3) cedwards 11:08 AM Coronary Dominance: right cedwards 11:08 AM Recorded Pressure: Ao, HR=57, Condition=Condition 1 (Aorta) Ao 118/47/72 11:10 AM HR=57 bpm, PQPL=280/71 mmhg, GxI6=737.0 %, Comment=SB 11:12 AM Catheter removed cedwards 11:12 AM Wire removed cedwards 11:13 AM Bolus angiogram of right Femoral complete, hand injection cedwards 11:13 AM Time: 10:58 Patient comfortable and pain free: Yes cedwards 11:13 AM Time: 10:58LOC: 4 = Oriented but drowsy cedwards 11:15 AM HR=58 bpm, FBOS=810/74 mmhg, ThX4=211.0 % 11:16 AM Procedure completed at 11:16 cedwards 11:16 AM Did you address MIGUEL flow and Dominance? Yes cedwards 11:16 AM Sign out completed: Radiation Dose 414.47 mGy Fluoro Time: 2.4 Isovue 370 - 200ml contrast 75 ml given by Shailesh James DO. Complications: NoneCardiac Rehab Consult needed: YesConfirmed administered medications: Yes cedwards 11:16 AM Isovue 370 - 200ml,1 Bottle(s) used. cedwards 11:16 AM Arterial sheath pulled using manual compression and V+ Pad for 20 minutes by Candy Vaz RT cedwards 11:17 AM Estimated Blood Loss: minimal cedwards 11:17 AM Post ECG Sinus Bradycardia cedwards 11:17 AM Post Blood Pressure 140/74 cedwards 11:17 AM 11:17 Post Pulses Bilateral DP 2+ cedwards 11:17 AM Information taught Cardiac Cath cedwards 11:17 AM Education needs Procedure, Plan of Care, and Responsibilities of Patient in Care cedwards 11:17 AM Learning barriers :None cedwards 11:17 AM Education Methods Verbal cedwards 11:17 AM Education evaluation Able to repeat information cedwards 11:18 AM Site status No bleeding/hematoma - Rt Groin as reported by Candy Vaz at 11:17 cedwards 11:18 AM Opsite applied cedwards 11:18 AM Plavix, Effient or Brilinta given No cedwards 11:18 AM No family available at present time cedwards 11:18 AM Complications: None cedwards 11:18 AM Conversation between Interventionalist and CT Surgeon. cedwards 11:[address] surgeon paged cedwards 11:19 AM Fluoro Time: 2.4 cedwards 11:19 AM Isovue 370 - 200ml contrast [address] James. cedwards 11:19 AM Radiation Dose 414.47 mGy cedwards 11:20 AM Lesion found in Distal LAD. Pre Stenosis: 90 Pre MIGUEL Flow: cedwards 11:20 AM Lesion found in Mid Circumflex. Pre Stenosis: 80 Pre MIGUEL Flow: cedwards 11:28 AM Report given to Samanta MORENO Pt taken to Room #64. 11:28 cedwards 11:28 AM Patient out of room: 11:28 cedwards 11:[address] Lopez at this time. cedwards 11:37 AM July made aware of pt being CABG consult cedwards Complications Complication None Hemodynamics Pressures Site Systolic/A Wave Diastolic/V Wave Mean LV 111 5 10 LV 130 39 28 AO 129 54 88 AO 118 47 72 Post Procedure Information Blood Pressure: 140/74 mmHg Rhythm: Sinus Bradycardia Closure Device Time Device Success/Fail 11/20/2017 11:20:00 AM Manual Compression Site Checks Time Location Status Staff Sheath In? Note 11:17 AM Rt Groin No bleeding/hematoma Candy Vaz RT Pulses Time Site Pre-Procedure Post-Procedure Note 11/20/2017 10:30:00 AM Bilateral DP 2+ 11:17:00 AM Bilateral DP 2+ Updated by Damian Ojeda RN on 11/20/2017 11:39:55 AM electronically signed on 11/20/2017 11:40:19 AM with status of Final
[2017-11-20] MEDS: 0.9 % Sodium Chloride 1,000 ML IVC SCH ×2 (13:12→20:06)
--- NOTE | 2017-11-20 14:38 | Cardiothoracic Consult Note ---
Date of Encounter: 11/20/17 Time of Encounter: 14:34 Assessment and Plan (1) NSTEMI (non-ST elevated myocardial infarction) Current Visit: Yes Status: Acute The patient is a 61-year-old type II diabetic, hypertensive lady with hypercholesterolemia, a long smoking history, and a strong family history of CAD. She has had substernal chest pain for the last month, and this is began to radiate into her neck and jaw and down her left arm. She has had at least 2 episodes of nausea and vomiting, the most recent being yesterday. She was evaluated at the [facility] and found to have elevated troponin I levels consistent with an acute NSTEMI. The patient was transferred to the [facility] for further cardiac care. She underwent cardiac catheterization was found to have severe 3 vessel CAD and an LVEF 55%. She has been recommended for urgent CABG. I concur with this recommendation. The STS risk calculator shows an operative mortality risk 0.75%, deep sternal wound infection risk 0.56%, permanent stroke risk 0.8%, renal failure risk 1.42%, and reoperation risk 3.30%. I believe that the patient should undergo urgent CABG since she had unstable angina prior to her non-STEMI. The patient understands the procedure, benefits, alternatives, and risks as outlined above. She is informed consent. We will proceed with CABG in the morning. The assessment and plan as outlined above was discussed with the patient and/or family members who expressed understanding and agreement. All questions were answered. - History of Present Illness Consult date: 11/20/17 Requesting physician: Shailesh James Consult reason: CABG evaluation Chief complaint: Substernal chest pain History of present illness: Ms. Causey is a 61 year old type II diabetic, hypertensive lady with hypercholesterolemia, a long smoking history, and a strong family history of CAD. Approximately 1 month ago the patient developed nonradiating substernal chest pain. This symptom has progressed during the last 1/2-2 weeks and now radiates into her neck and jaw and then down her left arm. She also has an associated headache and nausea; however, denies any shortness of breath, dyspnea on exertion, palpitations, or syncope. Yesterday, the patient had a severe episode of substernal chest pain, nausea, and vomiting. She was evaluated at the [facility] and found to have elevated troponin I levels consistent with an acute NSTEMI. She was treated medically and then transferred to [facility] for further cardiac care. The patient underwent cardiac catheterization today was found to have severe 3 vessel CAD and an LVEF 55%. In particular the patient has an 80-90% distal LAD lesion, an 80% proximal LCx lesion, and a 99% mid RCA lesion (small vessel). The patient has been recommended for CABG. Past Med Surg Social Fam HX - Past Medical History Medical history: COPD, coronary artery disease, diabetes, GERD, hyperlipidemia, hypertension, osteoporosis, thyroid disease Psychiatric history: anxiety, bipolar, depression, panic disorder - Past Surgical History Surgical History: other (Fallopian tube excision (unsure which side)) - Social History Smoking Status: Current every day smoker Packs per day: 1PPD x 40YRS Smokeless Tobacco Status: No Alcohol use: occasionally Drug use: none Occupational status: retired Current living situation: Home - Independent Activity Level: Independent ambulation Recent Out of Country Travel Within the Last 8 Weeks: No Exposure or Possible Exposure to Illness During Travel: No - Family History Father Race: Family Member Ethnicity: Non- Living Status: Age at : 67 Cause of : Metastatic cancer Hx Family Respiratory Disorders: Yes (lung cancer with mets) Hx Family Cancer: Yes (Metastatic) Mother Race: Family Member Ethnicity: Non- Living Status: Age at : 67 Cause of : NV Hx Family Cardiac Disorders: Yes Brother History Unknown: Yes Race: Family Member Ethnicity: Non- Living Status: Still Living Sister History Unknown: Yes Race: Family Member Ethnicity: Non- Living Status: Still Living Medications and Allergies ALPRAZolam [Xanax 0.5 MG Tablet] 0.5 mg PO QID 11/19/17 [History] Alendronate Sodium [Fosamax] 70 mg PO QWEEK 11/19/17 [History] Aspirin [Lo-Dose Aspirin EC] 81 mg PO DAILY 11/19/17 [History] Bisacodyl [Dulcolax] 10 mg RC DAILY PRN 11/19/17 [History] Cetirizine HCl [24Hour Allergy] 10 mg PO DAILY 11/19/17 [History] Docusate [Colace] 100 mg PO BID 11/19/17 [History] Gemfibrozil [Lopid] 600 mg PO BIDWM 11/19/17 [History] GlipiZIDE [Glipizide ER] 10 mg PO DAILY 11/19/17 [History] Ibuprofen [Advil] 200 mg PO DAILY PRN 11/19/17 [History] Levothyroxine [Synthroid] 50 mcg PO 0630 11/19/17 [History] Lisinopril [Zestril] 20 mg PO DAILY 11/19/17 [History] Omeprazole [PriLOSEC] 20 mg PO BIDAC 11/19/17 [History] Ranitidine HCl [Acid Door [employer]] 150 mg PO HS 11/19/17 [History] Saxagliptin HCl [Onglyza] 5 mg PO BID 11/19/17 [History] Trazodone HCl 200 mg PO HS 11/19/17 [History] buPROPion HCl [Zyban] 150 mg PO BID 11/19/17 [History] cloNIDine HCl [Clonidine HCl] 0.2 mg PO TID 11/19/17 [History] hydroCHLOROthiazide [Hydrochlorothiazide] 25 mg PO DAILY 11/19/17 [History] 3 Allergy/AdvReac Type Severity Reaction Status Date / Time metformin AdvReac See Verified 11/19/17 16:27 Comments All Systems Review: The remainder of the systems were reviewed and are negative Physical Examination Vital Signs, Last 4 Hours Temp Pulse Resp BP Pulse Ox 11/20/17 13:50 83 145/82 99 11/20/17 13:13 67 101/76 95 11/20/17 12:24 67 107/66 94 11/20/17 12:10 67 113/58 95 11/20/17 11:55 97.5 F L 63 14 99/62 96 General: Conversant, No Apparent Distress HEENT: Atraumatic, Normocephaly, Trachea midline Neck: No JVD, Normal carotid pulses Cardiac: Reg Rate and Rhythm, Normal S1 and S2, No Murmur Lungs: Normal Breath Sounds, No Wheeze, Rales, Rhonchi Neuro: Alert and responsive, No focal deficits noted, Motor nerves intact, Sensory nerves intact Vascular: Normal capillary refill Abdomen: Soft, Non-tender Skin: No rashes noted on visualized skin Musculoskeletal: No Chest Wall Tenderness Extremities: No Clubbing, No Cyanosis, No Edema, Normal Pulses Results 11/20/17 06:44 11/20/17 06:44 Lab Results, Last 24 hours 11/19/17 11/19/17 11/19/17 18:48 18:48 21:25 WBC 8.2 Hgb 14.1 Hct 42.4 Plt Count 255 APTT Sodium 134 L Potassium 4.2 Chloride 101 Carbon Dioxide 26 BUN 26 H Creatinine 0.75 Glucose 236 H Calcium 10.6 H Magnesium Total Bilirubin 0.4 AST 13 ALT 16 Alkaline Phosphatase 106 H Troponin I 0.51 H* TSH 11/19/17 11/20/17 11/20/17 22:31 03:34 06:44 WBC 6.0 Hgb 13.4 Hct 39.5 Plt Count 218 APTT 79.0 H D Sodium Potassium Chloride Carbon Dioxide BUN Creatinine Glucose Calcium Magnesium Total Bilirubin AST ALT Alkaline Phosphatase Troponin I 0.63 H* TSH 11/20/17 11/20/17 11/20/17 06:44 06:44 06:44 WBC Hgb Hct Plt Count APTT 119.4 H* D Sodium 136 Potassium 4.1 Chloride 103 Carbon Dioxide 24 BUN 27 H Creatinine 0.80 Glucose 273 H Calcium 10.0 Magnesium 1.7 Total Bilirubin 0.3 AST 13 ALT 13 Alkaline Phosphatase 97 Troponin I TSH 3.513 Consult Discharge Plan - Plan [facility]errals: [facility]Primary Care Provider[facility] -
[2017-11-20] MEDS ORDERED: CeFAZolin Syr 2,000MG/20 ML 2,000 MG/20 ML SYRINGE IVPB ONE (14:48)
--- NOTE | 2017-11-20 16:33 | Invasive Diagnostic Lab Proc ---
Name: Celi Causey Date of Study: 11/20/2017 Date: 1955 Ht: 66.1in Medical Record#: [id number] Age: 61 Wt: 187.39lb Gender: Female BSA: 1.95 Order #: [id number] BMI: 30.12 Physicians Procedure Physician: Shailesh James DO Referring MD: Referring MD: Staff Name Position Time In Candy Vaz RT Scrub 04:08 PM Kennedy Santana RN Black Top Raker 04:08 PM Damian Ojeda RN Monitor 04:09 PM Indications Indication Non-Stemi Procedures Performed Procedure L HRT ARTERY/VENTRICLE ANGIO Pre-Procedure Checklist Informed consent is complete signed and on chart. Patient NPO for procedure Plan of Care Patient will tolerate the procedure without complications. Adequate level of comfort will be maintained. Hemodynamics will remain stable Patient will recover from procedure without complications. Respiratory function will be maintained. Cardiac rhythm will remain stable. Patient temperature will be maintained. Patient and/or family have verbalized understanding of the procedure. Patient Education Intravenous Access Time IV Size Location DC'd Fluid/Drip Rate Units RN 20g 1 07/02" Patent On Arrival Lt Arm No Allergies metformin NONE NO KNOWN DRUG ALLERGIES Vital Signs Time BP (mmHg) HR (bpm) O2 Sat. RR (bpm) LOC 10:43 AM / % 5 = Fully awake and oriented or at pre-proc level 10:43 AM / % 4 = Oriented but drowsy 10:58 AM / % 4 = Oriented but drowsy 10:45 AM 117 / 67 59 100 % 10:49 AM 121 / 63 60 100 % 10:54 AM 122 / 57 59 100 % 10:59 AM 111 / 60 60 100 % 11:04 AM 106 / 50 56 100 % 11:10 AM 131 / 71 57 100 % 11:15 AM 140 / 74 58 100 % Procedural Medications Time Medication Dose Units Method Given By 10:46 AM Versed 2 mg Intravenous Kennedy Santana RN 10:43 AM Oxygen 2 L/min nasal cannula Kennedy Santana RN 10:54 AM Lidocaine 2% 10 ml Subcutaneous Shailesh James DO ASA Classification: CLASS IV- Severe systemic that is constant threat to patient's life Chaya Score Preprocedure Postprocedure Activity 2- Moves 4 extremities sustained head lift Activity 2- Moves 4 extremities sustained head lift Circulation 2- SBP +/= 20 points of pre-anesthetic level Circulation 2- SBP +/= 20 points of pre-anesthetic level Consciousness 2- Awake and alert oriented x 3 Consciousness 2- Awake and alert oriented x 3 O2 Saturation 2- Able to maintain O2 satruation of 92% on room air O2 Saturation 2- Able to maintain O2 satruation of 92% on room air Respiratory 2- Able to deep breathe and cough well Respiratory 2- Able to deep breathe and cough well Total Score 10 Total Score 10 Contrast Agent: Isovue Diagnostic Contrast: 75 ml Total Contrast: 75 ml Fluoro Dose: 414 mGy Procedure Log Time Note Enter By 10:30 AM CathStat 10:31 AM Pt arrived to engineering lab technician 2 at 10:31 cedwards 10:31 AM Patient charges- Angio tray pack, Navilyst 3mm J, Pulse Oximetry and ACIST tubing and transducer cedwards 10:31 AM Physican paged/called 10:31. cedwards 10:31 AM Physican responded and notified patient is ready 10:31 cedwards 10:40 AM Kennedy Santana RN Position: Black Top Raker Time in: 16:08 cedwards 10:40 AM Damian Ojeda RN Position: Monitor Time in: 16:09 cedwards 10:40 AM Candy Vaz Position: Scrub Time in: 16:08 cedwards 10:42 AM Case Start 10:43 AM Physician arrived 10:43 cedwards 10:43 AM Meet and greet completed cedwards 10:43 AM Sign in performed according to hospital policy. cedwards 10:43 AM Procedure start 10:43 cedwards 10:43 AM Time: 10:43 Oxygen on at 2 L/min per nasal cannula by Kennedy Santana RN cedwards 10:43 AM Time: 10:43 Patient comfortable and pain free: Yes cedwards 10:43 AM Time: 10:43LOC: 5 = Fully awake and oriented or at pre-proc level cedwards 10:43 AM Vitals capture started with the following parameters, Patient=Adult, Interval=5 min, Initial Azcajlhy=770 mmHg, Deflation Rate=5 mmHg, Cuff placed on Right Arm 10:44 AM Recorded ECG: HR=60 Condition=Condition 1 10:45 AM HR=59 bpm, WNDG=668/67 mmhg, YhU3=901.0 %, Comment=NSR 10:46 AM Time: 10:46 Versed 2 mg Intravenous Given by Kennedy Santana RN cedwards 10:47 AM ASA Class CLASS IV- Severe systemic that is constant threat to patient's life cedwards 10:48 AM Clinical Presentation: Non-STEMI cedwards 10:49 AM HR=60 bpm, BRYD=987/63 mmhg, WfH8=597.0 %, Comment=NSR 10:53 AM Pressure channel 2 zeroed. 10:54 AM Time out performed according to hospital policy cedwards 10:54 AM HR=59 bpm, BKYU=181/57 mmhg, FlY5=251.0 %, Comment=SB 10:55 AM Time: 10:54 10 ml Lidocaine 2% to right groin Subcutaneous Given by Shailesh James DO cedwards 10:58 AM Time: 10:43 Patient comfortable and pain free: Yes cedwards 10:58 AM Time: 10:43LOC: 4 = Oriented but drowsy cedwards 10:59 AM HR=60 bpm, TZJP=383/60 mmhg, XhP0=544.0 %, Comment=NSR 11:00 AM Unsuccessful access attempt # 1 into the right Femoral artery. Manual pressure applied to achieve hemostasis.. cedwards 11:03 AM Micro-Introducer Kit utilized for sheath placement cedwards 11:04 AM Access obtained by percutaneous puncture. 6Fr 10cm Terumo Daisetta sheath placed in right Femoral artery. [id number] cedwards 11:04 AM HR=56 bpm, AQPT=481/50 mmhg, GeR5=886.0 %, Comment=sb 11:04 AM 6Fr FR 4 catheter inserted over the wire [facility] cedwards 11:04 AM Catheter selectively placed in left ventricle cedwards 11:04 AM Bolus angiogram of left Ventricle complete: hand injection cedwards 11:05 AM 0.035 145cm Navilyst 3mmJ wire [id number] cedwards 11:05 AM Recorded Pressure: LV, HR=56, Condition=Condition 1 (Left Ventricle) LV 111/5/10 11:05 AM Recorded Pressure: LV, HR=57, Condition=Condition 1 (Left Ventricle) LV 130/39/28 11:06 AM Recorded Pressure: Ao, HR=63, Condition=Condition 1 (Aorta) Ao 129/54/88 11:06 AM RCA angiography performed in multiple views. cedwards 11:07 AM Catheter removed cedwards 11:07 AM 6Fr FL 4 catheter inserted over the wire DNC cedwards 11:07 AM LCA angiography performed in multiple views. cedwards 11:08 AM Lesion found in Mid RCA. Pre Stenosis: 99 Pre MIGUEL Flow: 2: Partial Flow/Perfusion (> 1 but < 3) cedwards 11:08 AM Coronary Dominance: right cedwards 11:08 AM Recorded Pressure: Ao, HR=57, Condition=Condition 1 (Aorta) Ao 118/47/72 11:10 AM HR=57 bpm, GACB=604/71 mmhg, DqK3=231.0 %, Comment=SB 11:12 AM Catheter removed cedwards 11:12 AM Wire removed cedwards 11:13 AM Bolus angiogram of right Femoral complete, hand injection cedwards 11:13 AM Time: 10:58 Patient comfortable and pain free: Yes cedwards 11:13 AM Time: 10:58LOC: 4 = Oriented but drowsy cedwards 11:15 AM HR=58 bpm, SCJP=777/74 mmhg, XyI1=873.0 % 11:16 AM Procedure completed at 11:16 cedwards 11:16 AM Did you address MIGUEL flow and Dominance? Yes cedwards 11:16 AM Sign out completed: Radiation Dose 414.47 mGy Fluoro Time: 2.4 Isovue 370 - 200ml contrast 75 ml given by Shailesh James DO. Complications: NoneCardiac Rehab Consult needed: YesConfirmed administered medications: Yes cedwards 11:16 AM Isovue 370 - 200ml,1 Bottle(s) used. cedwards 11:16 AM Arterial sheath pulled using manual compression and V+ Pad for 20 minutes by Candy Vaz RT cedwards 11:17 AM Estimated Blood Loss: minimal cedwards 11:17 AM Post ECG Sinus Bradycardia cedwards 11:17 AM Post Blood Pressure 140/74 cedwards 11:17 AM 11:17 Post Pulses Bilateral DP 2+ cedwards 11:17 AM Information taught Cardiac Cath cedwards 11:17 AM Education needs Procedure, Plan of Care, and Responsibilities of Patient in Care cedwards 11:17 AM Learning barriers :None cedwards 11:17 AM Education Methods Verbal cedwards 11:17 AM Education evaluation Able to repeat information cedwards 11:18 AM Site status No bleeding/hematoma - Rt Groin as reported by Candy Vaz RT at 11:17 cedwards 11:18 AM Opsite applied cedwards 11:18 AM Plavix, Effient or Brilinta given No cedwards 11:18 AM No family available at present time cedwards 11:18 AM Complications: None cedwards 11:18 AM Conversation between Interventionalist and CT Surgeon. cedwards 11:[address] surgeon paged cedwards 11:19 AM Fluoro Time: 2.4 cedwards 11:19 AM Isovue 370 - 200ml contrast [address] James. cedwards 11:19 AM Radiation Dose 414.47 mGy cedwards 11:20 AM Lesion found in Distal LAD. Pre Stenosis: 90 Pre MIGUEL Flow: cedwards 11:20 AM Lesion found in Mid Circumflex. Pre Stenosis: 80 Pre MIGUEL Flow: cedwards 11:28 AM Report given to Samanta MORENO Pt taken to Room #64. 11:28 cedwards 11:28 AM Patient out of room: 11:28 cedwards 11:[address] Lopez at this time. cedwards 11:37 AM July made aware of pt being CABG consult cedwards 11:40 AM Patient out of room: 11:40 cedwards 04:25 PM Left Main Coronary Artery with 0% stenosis cedwards 04:25 PM Proximal Left Anterior Descending Coronary Artery with 0% stenosis. If graft is supplying this territory, 0 % stenosis. cedwards 04:25 PM Mid/Distal Left Anterior Descending Coronary Artery and diagonal branches with 90% stenosis. If graft is supplying this area, 0 % stenosis cedwards 04:25 PM Circumflex, Obtuse Marginal, Left Posterior Descending, and Left Posterolateral Coronary Arteries with 80 % stenosis. If graft is supplying this area, 0 % stenosis cedwards 04:25 PM Right Coronary, Right Posterior Descending Arteries with Right Posterolateral and Acute Marginal branches with 99 % stenosis. If graft is supplying this area, 0 % stenosis cedwards 04:25 PM Ramus with 0% stenosis. If graft is supplying this area, 0 % stenosis cedwards Complications Complication None Hemodynamics Pressures Site Systolic/A Wave Diastolic/V Wave Mean LV 111 5 10 LV 130 39 28 AO 129 54 88 AO 118 47 72 Post Procedure Information Blood Pressure: 140/74 mmHg Rhythm: Sinus Bradycardia Post procedural instructions were given Surgery consult for CABG Closure Device Time Device Success/Fail 11/20/2017 11:20:00 AM Manual Compression Site Checks Time Location Status Staff Sheath In? Note 11:17 AM Rt Groin No bleeding/hematoma Candy Vaz RT Pulses Time Site Pre-Procedure Post-Procedure Note 11/20/2017 10:30:00 AM Bilateral DP 2+ 11:17:00 AM Bilateral DP 2+ Updated by Damian Ojeda RN on 11/20/2017 4:27:16 PM electronically signed on 11/20/2017 4:28:16 PM with status of Final
--- NOTE | 2017-11-20 18:15 | Internal Med Progress Note ---
Date of Encounter: 11/20/17 Time of Encounter: 13:00 - Assessment and plan (1) Chest pain Current Visit: Yes Status: Acute Assessment and plan: Patient has been experiencing substernal chest pain for the past month and began to radiate to her neck and jaw and her left arm. She did have 2 episodes of nausea and vomiting. She was initially evaluated at the [facility] and was found to have elevated troponins and was sent to the edema ER for further evaluation. She did undergo a left heart catheter per cardiology and was found to have severe 3 vessel CAD and LVEF of 55%. She was recommended for an urgent CABG. Cardiothoracic was consulted and patient will undergo CABG in the a.m. Qualifiers: Chest pain type: other chest pain Qualified Code(s): R07.89 - Other chest pain; R07.8 - Other chest pain (2) Elevated troponin Current Visit: Yes Status: Acute Assessment and plan: Nitroglycerin as needed for chest pain aspirin statin continuous cardiac telemetry Heparin drip per cardiology (3) COPD (chronic obstructive pulmonary disease) Current Visit: Yes Status: Chronic Assessment and plan: Hx of chronic COPD. Stable. DuoNebs Q6HR PRN. Supplemental O2 w/titration and SpO2 monitoring. Qualifiers: COPD type: unspecified COPD Qualified Code(s): J44.9 - Chronic obstructive pulmonary disease, unspecified (4) GERD (gastroesophageal reflux disease) Current Visit: Yes Status: Chronic Assessment and plan: Hx of chronic GERD. IVP Protonix 40 mg BID. IVP Zofran 4 mg. Q6HR PRN for N/V. Qualifiers: Esophagitis presence: esophagitis presence not specified Qualified Code(s) : K21.9 - Gastro-esophageal reflux disease without esophagitis (5) Diabetes Current Visit: Yes Status: Chronic Assessment and plan: We will hold oral medication continue with Accu-Cheks before meals at bedtime sliding scale insulin Qualifiers: Diabetes mellitus type: type 2 Diabetes mellitus snf insulin use: without conductor sleeping car use Diabetes mellitus complication status: with unspecified complications Qualified Code(s): E11.8 - Type 2 diabetes mellitus with unspecified complications (6) HTN (hypertension) Current Visit: Yes Status: Chronic Assessment and plan: Continue patient's hydrochlorothiazide and Zestril. Qualifiers: Hypertension type: essential hypertension Qualified Code(s): I10 - Essential (primary) hypertension (7) Thyroid disease Current Visit: Yes Status: Chronic Assessment and plan: Continue with Synthroid (8) DVT prophylaxis Current Visit: Yes Status: Acute Assessment and plan: On heparin drip. - Time Spent With Patient Total time spent is greater than 50% in coordination of care (as documented) at patient's floor/unit and/or counseling patient: - Subjective Interval history: Patient was seen and examined at bedside. She did undergo a left heart catheter today and was found to have severe three-vessel CAD. She tolerated procedure well there is no active bleeding from insertion site. She denies any chest pain or shortness of breath at this time. I did review treatment plan with the patient verbalized understanding. - Constitutional Vitals: Temp Pulse Resp BP Pulse Ox 97.6 F 66 14 110/56 97 11/20/17 16:31 11/20/17 16:31 11/20/17 16:31 11/20/17 16:31 11/20/17 16:31 General appearance: Present: cooperative, mild distress, A&O X 3, pleasant, obese, answers questions appropriately - Head Head exam: Present: atraumatic, normocephalic - Eye Eye exam: Present: PERRL, conjuntiva pink, sclera anicteric Pupils: Present: PERRL - Neck Neck exam general surgery: Present: supple, trachea midline. Absent: lymphadenopathy - Respiratory Respiratory exam: Present: CTAB. Absent: accessory muscle use, rales, rhonchi, wheezes - Cardiovascular Cardiovascular exam: Present: RRR, +S1, +S2. Absent: diastolic murmur, gallop, rubs, systolic murmur - GI/Abdominal GI/Abdominal exam: Present: normal bowel sounds, soft, no peritoneal signs. Absent: distended, tenderness - Extremities Exam Extremities exam: Present: warm, radial pulses palpable and symmetrical. Absent : calf tenderness, cyanotic, pedal edema - Neurological Exam Neurological exam: Present: CN II-XII intact, oriented X3, no focal deficits. Absent: pronater drift, facial droop, speech deficit - Skin Skin exam: Present: dry, intact Internal Medicine: Result - Labs CBC & Chem 7: 11/20/17 06:44 11/20/17 06:44 Labs: Short CBC 11/19/17 11/20/17 Range/Units 18:48 06:44 WBC 8.2 6.0 (4.3-11.1) K/mcL Hgb 14.1 13.4 (11.5-15.4) g/dL Hct 42.4 39.5 (35.3-44.9) % Plt Count 255 218 (140-400) K/mcL Neutrophils # 4.5 2.7 (1.6-8.9) K/mcL BMP 11/19/17 11/20/17 18:48 06:44 Sodium 134 L 136 Potassium 4.2 4.1 Chloride 101 103 Carbon Dioxide 26 24 BUN 26 H 27 H Creatinine 0.75 0.80 Glucose 236 H 273 H Calcium 10.6 H 10.0 Cardiac Enzymes 11/19/17 11/20/17 Range/Units 21:25 03:34 Troponin I 0.51 H* 0.63 H* (< 0.04) ng/mL Liver Function 11/19/17 11/20/17 Range/Units 18:48 06:44 Total Bilirubin 0.4 0.3 (0.3-1.0) mg/dL AST 13 13 (13-39) Units/L ALT 16 13 (7-52) Units/L Alkaline Phosphatase 106 H 97 (34-104) Units/L Albumin 4.5 3.6 (3.5-5.7) g/dL - ABG Interpretation ABG results: PT/INR, D-dimer PT 10.6 Seconds (9.4-12.1) 11/19/17 16:35 - Impressions Impressions Chest X-Ray 11/20/17 14:48 IMPRESSION: No acute abnormality. D/ / Gerardo Marquez MD / Gerardo Marquez MD Interpreting Provider: Gerardo Marquez MD Consult Discharge Plan - Plan [facility]: [facility] [Primary Care Provider[facility] -
[2017-11-20] MEDS: Chlorhexidine Rinse 15 ML MOUTHWASH MM SCH (20:01)
[2017-11-20] MEDS: traZODone 50 MG TABLET PO SCH (22:40)
[2017-11-21] MEDS: Heparin 25,000 UNIT/500 ML D5W 25,000 UNIT/500 ML BAG IVC SCH (01:25)
[2017-11-21] MEDS ORDERED: Norepinephrine 4 MG in D5% in Water 250 ML IVC PRN (02:00)
[2017-11-21] MEDS ORDERED: Dextrose 50 % in Water (Vial) 30 ML, Sodium Bicarbonate 20 MEQ, Potassium Chloride 15 M... TH ONE (02:00)
[2017-11-21] MEDS ORDERED: Insulin Human Regular 100 UNIT in 0.9 % Sodium Chloride 100 ML IV PRN (02:00)
[2017-11-21] MEDS ORDERED: CeFAZolin Syr 2,000MG/20 ML 2,000 MG/20 ML SYRINGE IVPB ONE ×2 (05:00→07:00)
[2017-11-21 06:00] LABS: Basophils % 0.6 %; Eosinophils # 0.2 K/mcL (0.0-0.6); Eosinophils % 3.3 %; Hematocrit 35.4 % (35.3-44.9); Immature Granulocytes % 0.6 % (0-4); Lymphocytes # 1.9 K/mcL (0.6-4.6); Lymphocytes % 38.9 %; Mean Corpuscular HGB Conc 33.9 g/dL (31.6-35.5); Mean Corpuscular Hemoglobin 31.2 pg (28.0-33.3); Mean Corpuscular Volume 91.9 fL (83.0-100.0); Mean Platelet Volume 10.9 fL (9.4-12.4); Monocytes # 0.4 K/mcL (0.0-1.3); Monocytes % 8.8 %; Neutrophils # 2.3 K/mcL (1.6-8.9); Platelet Count 192 K/mcL (140-400); Red Blood Count 3.85 M/mcL (3.82-4.97); Red Cell Distribution Width 12.6 % (11.5-14.5); Segmented Neutrophils % 47.8 %
[2017-11-21] MEDS: Chlorhexidine Rinse 15 ML MOUTHWASH MM SCH (06:05)
[2017-11-21] MEDS: Aspirin Enteric Coated 81 MG Tablet PO SCH (06:05)
[2017-11-21 06:17] LABS: Alanine Aminotransferase 13 Units/L (7-52); Albumin 3.3 g/dL (3.5-5.7); Albumin/Globulin Ratio 1.4 (1.1-2.2); Alkaline Phosphatase 88 Units/L (34-104); Aspartate Amino Transferase 11 Units/L (13-39); BUN/Creatinine Ratio 29 (6-26); Bilirubin,Total 0.3 mg/dL (0.3-1.0); Blood Urea Nitrogen 24 mg/dL (8-23); Calcium 9.2 mg/dL (8.6-10.3); Carbon Dioxide 24 mEq/L (23-29); Chloride 105 mEq/L (98-107); Globulin 2.4 g/dL (2.4-3.5); Glucose 329 mg/dL (70-105); Osmolality,Calculated 299 (280-300); Potassium 4.1 mEq/L (3.5-5.1); Sodium 136 mEq/L (136-145); Total Protein 5.7 g/dL (6.4-8.9); eGFR For African Americans > 60 (> 60); eGFR For Non-African Americans > 60 (> 60)
[2017-11-21] MEDS ORDERED: Nitroglycerin 25 MG/250 ML INFUS..BTL IVC ONE (06:57)
[2017-11-21] MEDS ORDERED: *HR* Rocuronium Bromide 50 MG/5 ML VIAL ONE (06:59)
[2017-11-21] MEDS ORDERED: *HR* Phenylephrine 10 MG/ML VIAL ONE (06:59)
[2017-11-21] MEDS ORDERED: *HR* Norepinephrine 4 MG/4 ML VIAL IVC ONE (06:59)
[2017-11-21] MEDS ORDERED: *HR* EPINEPHrine 1 MG/ML AMPUL ONE (07:01)
[2017-11-21] MEDS ORDERED: *HR* Magnesium Sulfate 1 GM/2 ML VIAL ONE (07:02)
[2017-11-21] MEDS ORDERED: *HR* Midazolam HCl 5 MG/5 ML VIAL IVP ONE (07:11)
[2017-11-21] MEDS ORDERED: Lidocaine 2% Syringe 100 MG/5 ML ONE (07:11)
[2017-11-21] MEDS ORDERED: *HR* FentaNYL (PF) 1,000 MCG/20 ML VIAL ONE (07:11)
[2017-11-21] MEDS ORDERED: Tranexamic Acid 1,000 MG/10 ML VIAL ONE (07:20)
--- NOTE | 2017-11-21 07:28 | Anesthesia Evaluation PreOp ---
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 HX Other Medical History: Diabetes Type II, Thyroid Anesthesia History: No Prior Anesthetic Complications : No Alcohol Use: occasionally Drug use: none Medications and Allergies ALPRAZolam [Xanax 0.5 MG Tablet] 0.5 mg PO QID 11/19/17 [History] Alendronate Sodium [Fosamax] 70 mg PO QWEEK 11/19/17 [History] Aspirin [Lo-Dose Aspirin EC] 81 mg PO DAILY 11/19/17 [History] Bisacodyl [Dulcolax] 10 mg RC DAILY PRN 11/19/17 [History] Cetirizine HCl [24Hour Allergy] 10 mg PO DAILY 11/19/17 [History] Docusate [Colace] 100 mg PO BID 11/19/17 [History] Gemfibrozil [Lopid] 600 mg PO BIDWM 11/19/17 [History] GlipiZIDE [Glipizide ER] 10 mg PO DAILY 11/19/17 [History] Ibuprofen [Advil] 200 mg PO DAILY PRN 11/19/17 [History] Levothyroxine [Synthroid] 50 mcg PO 0630 11/19/17 [History] Lisinopril [Zestril] 20 mg PO DAILY 11/19/17 [History] Omeprazole [PriLOSEC] 20 mg PO BIDAC 11/19/17 [History] Ranitidine HCl [Acid Guard Lieutenant] 150 mg PO HS 11/19/17 [History] Saxagliptin HCl [Onglyza] 5 mg PO BID 11/19/17 [History] Trazodone HCl 200 mg PO HS 11/19/17 [History] buPROPion HCl [Zyban] 150 mg PO BID 11/19/17 [History] cloNIDine HCl [Clonidine HCl] 0.2 mg PO TID 11/19/17 [History] hydroCHLOROthiazide [Hydrochlorothiazide] 25 mg PO DAILY 11/19/17 [History] 3 Allergy/AdvReac Type Severity Reaction Status Date / Time metformin AdvReac See Verified 11/19/17 16:27 Comments - Meds/Allergy Pre-op Review Medications Reviewed: Yes Allergies Reviewed: Yes (metformin) Beta Blockers on Current Med List: Yes (Metoprolol 25 mg) If Beta Blockers taken, Date/Time (Last Dose taken): 0600 Anesthesia Results - Labs 11/21/17 05:16 11/21/17 05:16 - Imaging EKG: report reviewed, image reviewed Chest x-ray: report reviewed Additional studies: left heart catheter per cardiology and was found to have severe 3 vessel CAD and LVEF of 55% Anesthesia Exam Blood glucose: 329 (will get insuling gtt for OR and post op) Height: 1.68 m Weight: 82 kg NPO (# of Hours): greater than 8 - HEENT Pupil (Motor): Pupils equal Mallampati: II Teeth: Edentulous - 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 Risks discussed and questions answered.
--- NOTE | 2017-11-21 08:05 | Electrocardiograph Report ---
[place] [id number] Test Date: 2017-11-19 Pat Name: Celi Causey Department: 104 Room: 3B64 Gender: F Podopediatrician: SAADIA : 1955 Requested By: Kavitha See Order Number: [id number] Reading MD: Star Patton Measurements Intervals [place] Rate: 57 P: 25 MS: 150 QRS: 49 QRSD: 93 T: 120 QT: 420 QTc: 415 Interpretive Statements SINUS BRADYCARDIA ST DEVIATION AND MODERATE T-WAVE ABNORMALITY, CONSIDER LATERAL ISCHEMIA Electronically Signed On 11-21-2017 8:04:04 EDT by Star Patton
[2017-11-21] MEDS ORDERED: Albumin Human 5% 50.0 GM/1,000 ML VIAL ONE (08:37)
[2017-11-21 09:00] LABS: ABG Base Excess -3 mEq/L (-2 to 3); ABG Chloride 108 mEq/L (98-107); ABG Glucose 272 mg/dL (60-95); ABG HCO3 24 mEq/L (21-27); ABG Ionized Calcium 1.22 mmol/L (1.15-1.35); ABG Oxygen Saturation 100 % (95-98); ABG PCO2 50 mmHg (35-45); ABG PH 7.29 pH Units (7.32-7.45); ABG PO2 482 mmHg (85-104); ABG TCO2 26 mEq/L (20-26)
--- NOTE | 2017-11-21 09:22 | Anesthesia Procedures ---
Date of Encounter: 11/21/17 Time of Encounter: 08:05 Procedures: Anesthesia - Arterial Line Consent obtained: written consent Time out performed: Yes Sedation: Versed (mg): 2 (see anesthesia record) Local Anesthetic: Lidocaine 1% Amount of Anesthetic used (mls): 0.2 Size (Gauge): 20 Length (inches): 1 3/4 Technique Used: sterile prep Post-Procedure: line taped into place, dry sterile dressing placed Patient tolerated procedure: well Complications: none Site: Radial L - Central Line Placement Right IJ Consent obtained: written consent Time out performed: Yes Patient placed on monitor/pulse ox: Yes prep: mask, gown, gloves Central line prep: Chlorhexidine scrub Ultrasound used for placement: Yes Technique: Seldinger Lumen Inserted: Introducer Size / Length: 9 Fr / 10 cm Post procedure: sutured in place, good blood return, sterile dressing applied Patient tolerated procedure: well, no complications Complications: none Vitals: see anesthesia record Comments: PAC inserted with pressure waveform analysis. Secured at 48 cm.
[2017-11-21 09:48] LABS: ABG Base Excess -3 mEq/L (-2 to 3); ABG Chloride 107 mEq/L (98-107); ABG Glucose 215 mg/dL (60-95); ABG HCO3 24 mEq/L (21-27); ABG Oxygen Saturation 100 % (95-98); ABG PCO2 50 mmHg (35-45); ABG PH 7.28 pH Units (7.32-7.45); ABG PO2 218 mmHg (85-104); ABG TCO2 25 mEq/L (20-26)
[2017-11-21] MEDS ORDERED: Mannitol 25% vial 12.5 GM/50 ML VIAL IVP ONE (10:05)
[2017-11-21] MEDS ORDERED: Albumin Human 25% 25 GM/100 ML IV.SOLN IV ONE (10:05)
[2017-11-21] MEDS ORDERED: Tranexamic Acid 1,000 MG/10 ML VIAL IVPB ONE (10:05)
[2017-11-21] MEDS ORDERED: *HR* Magnesium Sulfate 2 GM/50 ML PIGGYBACK IVPB ONE (10:05)
[2017-11-21] MEDS ORDERED: *HR* Heparin 10,000 UNIT/10 ML VIAL IV ONE (10:05)
[2017-11-21] MEDS ORDERED: *HR* Phenylephrine 10 MG/ML VIAL IVC ONE (10:05)
[2017-11-21] MEDS ORDERED: Lidocaine 2% Syringe 100 MG/5 ML IV ONE (10:05)
[2017-11-21 10:22] LABS: ABG Base Excess 1 mEq/L (-2 to 3); ABG Chloride 103 mEq/L (98-107); ABG Glucose 219 mg/dL (60-95); ABG HCO3 27 mEq/L (21-27); ABG Ionized Calcium 1.02 mmol/L (1.15-1.35); ABG Oxygen Saturation 100 % (95-98); ABG PCO2 46 mmHg (35-45); ABG PH 7.37 pH Units (7.32-7.45); ABG PO2 510 mmHg (85-104); ABG TCO2 28 mEq/L (20-26)
[2017-11-21] MEDS ORDERED: Ondansetron 4 MG/2 ML VIAL ONE (10:23)
[2017-11-21] MEDS ORDERED: Famotidine 20 MG/2 ML VIAL ONE (10:23)
[2017-11-21] MEDS ORDERED: Protamine Sulfate 250 MG/25 ML VIAL IVP ONE (10:26)
[2017-11-21] MEDS ORDERED: *HR* Amiodarone 150 MG/3 ML VIAL IVPB ONE (10:37)
[2017-11-21 10:42] LABS: ABG Base Excess 3 mEq/L (-2 to 3); ABG Chloride 104 mEq/L (98-107); ABG Glucose 201 mg/dL (60-95); ABG HCO3 27 mEq/L (21-27); ABG Oxygen Saturation 100 % (95-98); ABG PCO2 42 mmHg (35-45); ABG PH 7.43 pH Units (7.32-7.45); ABG PO2 350 mmHg (85-104); ABG TCO2 29 mEq/L (20-26)
[2017-11-21 11:23] LABS: ABG Base Excess 5 mEq/L (-2 to 3); ABG Chloride 105 mEq/L (98-107); ABG Glucose 142 mg/dL (60-95); ABG HCO3 30 mEq/L (21-27); ABG Ionized Calcium 1.17 mmol/L (1.15-1.35); ABG Oxygen Saturation 100 % (95-98); ABG PCO2 46 mmHg (35-45); ABG PH 7.42 pH Units (7.32-7.45); ABG PO2 343 mmHg (85-104); ABG TCO2 31 mEq/L (20-26)
[2017-11-21 11:48] LABS: ABG Base Excess 2 mEq/L (-2 to 3); ABG Chloride 108 mEq/L (98-107); ABG Glucose 115 mg/dL (60-95); ABG HCO3 28 mEq/L (21-27); ABG Ionized Calcium 1.36 mmol/L (1.15-1.35); ABG Oxygen Saturation 100 % (95-98); ABG PCO2 49 mmHg (35-45); ABG PH 7.36 pH Units (7.32-7.45); ABG PO2 278 mmHg (85-104); ABG TCO2 29 mEq/L (20-26)
--- NOTE | 2017-11-21 12:08 | Operative Note ---
Date of procedure: 11/21/17 Pre-op diagnosis: NSTEMI Post-op diagnosis: same Procedure: 1. CABG3 (ADAM to LAD, SVG to OM1, SVG to PDA). 2. Endoscopic vein harvesting, greater saphenous vein from left lower extremity. Implants: None. Complications: None. Anesthesia: GETA Surgeon: Kiko Lopez Was there an patient care nursing assistant present: Yes Contractor Buyer: Christiano Mendoza Estimated blood loss (cc): 500 Specimen: None. Condition: stable Disposition: ICU Procedure in Detail: INDICATIONS FOR OPERATION: The patient is a 61 year old type II diabetic, hypertensive lady with hypercholesterolemia, a long smoking history, and a strong family history of CAD. Approximately 1 month ago the patient developed nonradiating substernal chest pain. This symptom has progressed during the last 1/2-2 weeks and now radiates into her neck and jaw and then down her left arm. She also has an associated headache and nausea; however, denies any shortness of breath, dyspnea on exertion, palpitations, or syncope. Yesterday, the patient had a severe episode of substernal chest pain, nausea, and vomiting. She was evaluated at the [facility] and found to have elevated troponin I levels consistent with an acute NSTEMI. She was treated medically and then transferred to [facility] for further cardiac care. The patient underwent cardiac catheterization today was found to have severe 3 vessel CAD and an LVEF 55%. In particular the patient has an 80-90% distal LAD lesion, an 80% proximal LCx lesion, and a 99% mid RCA lesion (small vessel). The patient has been recommended for CABG. FINDINGS AT OPERATION: The aorta was of normal caliber without calcification. The coronary arteries measure approximately 1.25-1.5 mm in diameter and had mild distal disease. The saphenous vein was harvested endoscopically from the right lower extremity. The total bypass time was 84 minutes, cross-clamp time 41 minutes, intentional hypothermia of 34.4 degrees centigrade. DESCRIPTION OF OPERATION: After obtaining informed operative consent from the patient, she was taken to the operative tumor satisfactory general tracheal anesthetic was induced. Appropriate monitor lines placed, and the patient's chest, abdomen, and lower extremities were prepped and draped in a sterile fashion. The greater saphenous vein was harvested endoscopically from the left lower extremity from the knee to the groin. The vein was removed, distended, and found to be of fair quality, being somewhat smaller diameter than expected. The subcutaneous tissue and skin edges were reapproximated running Vicryl sutures. Simultaneously, a standard median sternotomy incision was made and sternum divided. The ADAM was taken down from its bed and side branches divided between hemoclips. The sternum was the pericardium opened and reflected laterally. The patient was prepared for cannulation by placing purse sutures the distal ascending aortic, mid-ascending aorta, and right atrial appendage. The patient was heparinized and when the ACT was graded 200 seconds , the distal ascending aorta was cannulated followed by placement of dual stage venous cannula through the right atrial appendage and into the inferior vena cava. A stab-in antegrade metabolic and is placed in the mid-ascending aorta. The patient was placed on bypass and temperature allowed to drift to 34.4 degrees centigrade. The distal targets were identified and the aorta was crossclamped. The patient received 700 mL of cold antegrade crystalloid cardioplegia through the aortic root and the patient's heart obtained rapid diastolic arrest. The PDA was opened the Sigel blade and was found to measure approximately 1.25 mm diameter. The vein was anastomosed in an end-to-side fashion to the PDA using a running 7-0 Prolene suture. The anastomosis found to be hemostatic and the patient received another dose of cold antegrade crystalloid cardioplegia through the aortic root. The OM1 branch was opened be blade distal to a plaque and the vein was anastomosed in end-to-side fashion to the OM1 branch using running 7-0 Prolene suture. The anastomosis found be hemostatic the patient a final dose of cold antegrade crystalloid cardioplegia through the aortic root. The LAD was opened be blade and the ADAM was anastomosed to the LAD using running 7-0 Prolene suture. The anastomosis found to be hemostatic and the mammary pedicle was tacked to the epicardium using interrupted 5-0 silk suture. Rewarming was begun during this anastomosis. The aortic cross-clamp was released and the heart distended. The veins were measured and cut appropriate lengths. A partial occluding clamps placed across the midascending aorta and the antegrade cardioplegia cannula was removed. The aortotomy incision was enlarged with 4 mm punch and the vein graft to the PDA was anastomosed in an inside fashion to the aorta using running 5-0 Prolene suture. The vein graft was occluded with bulldog clamps and de-aired with a 25- gauge needle prior to removing the partial occluding clamp. The vein graft to the OM1 branch was small in caliber at the designated length to the aorta, and it was decided to anastomose the end of the OM1 graft to the side of the PDA graft, thus creating a Y graft. The vein grafts were occluded with bulldog clamp and the vein graft to the PDA was opened in longitudinal fashion. The and of the vein graft to the OM1 was anastomosed in an end-to-side fashion to the vein graft to the PDA using running 7-0 Prolene suture. The vein grafts were de-aired by releasing the bulldog clamps prior to securing the anastomosis. The proximal and distal anastomoses found to be hemostatic and the proximal anastomosis was marked with radiopaque loops. Two right ventricular chamber epicardial pacing leads were placed and 3 chest suture placed, 2 into the mediastinum and one into the left pleural space. During rewarming the patient' s heart rhythm deteriorated to ventricular fibrillation and she required 3 separate 10 J direct-current shocks endarterectomy normal sinus rhythm. She was bolused with amiodarone and amiodarone drip was begun. The patient systemic temperature reached 36 degrees centigrade, she was ventilated and received volume. She was weaned from bypass required no inotropic support. Protamine was administered and the aortic and venous cannulae were removed. The pursestring sutures were secured. The venous cannulation site was reinforced with a running 4-0 Prolene suture. The pericardium was loosely approximated in midline using interrupted 0 silk suture and the sternum was reapproximated sternal wires. The pectoralis major fascia, rectus pelvis fascia , subcutaneous tissue, and skin edges were reapproximated using running Vicryl sutures. A negative pressure sterile dressings was applied to the sternotomy incision. The patient was transferred to the ICU in satisfactory postoperative condition. There were no intraoperative complications, and the instrument, needle, and sponge count were corrected and of operation.
[2017-11-21] MEDS ORDERED: *HR* FentaNYL (PF) 100 MCG/2 ML VIAL IVP PRN (12:09)
[2017-11-21] MEDS ORDERED: Amiodarone Premix 360 MG/200 ML BAG IVC ONE (12:09)
[2017-11-21] MEDS ORDERED: Calcium Chloride 1,000 MG in 0.9 % Sodium Chloride 100 ML IVPB PRN (12:09)
[2017-11-21] MEDS ORDERED: *HR* Dextrose 50 % in Water (Syg) 50 ML SYRINGE IVP PRN (12:09)
[2017-11-21] MEDS ORDERED: Acetaminophen 325 MG TABLET PO PRN (12:09)
[2017-11-21] MEDS ORDERED: Acetaminophen 650 MG RECTAL SUPP RC PRN (12:09)
[2017-11-21] MEDS ORDERED: Potassium Chloride 40 MEQ/200 ML BAG IVPB PRN (12:09)
[2017-11-21] MEDS ORDERED: Insulin Regular, Human 100 UNIT/ML IV PRN (12:09)
[2017-11-21] MEDS ORDERED: 0.9 % Sodium Chloride w KCl 20 MEQ/1,000 ML MLS IVC SCH (12:15)
[2017-11-21] MEDS ORDERED: Insulin Human Regular 100 UNIT in 0.9 % Sodium Chloride 100 ML IVC SCH (12:15)
[2017-11-21] MEDS ORDERED: Pantoprazole 40 MG VIAL IVP SCH (12:15)
[2017-11-21] MEDS ORDERED: Norepinephrine 4 MG in D5% in Water 250 ML IVC SCH (12:15)
[2017-11-21 12:45] LABS: ABG Base Excess 4 mEq/L (-2 to 3); ABG HCO3 31 mEq/L (21-27); ABG Oxygen Saturation 93 % (95-98); ABG PCO2 56 mmHg (35-45); ABG PH 7.35 pH Units (7.32-7.45); ABG PO2 73 mmHg (85-104); ABG TCO2 32 mEq/L (20-26); Blood Gas Modality ASSIST CONTROL; Blood Gas PEEP 5 cm H2O; Blood Gas Respiration Rate 10; Blood Gas VT 500 cc
[2017-11-21 12:52] LABS: Basophils % 0.3 %; Eosinophils # 0.1 K/mcL (0.0-0.6); Eosinophils % 1.3 %; Immature Granulocytes % 0.9 % (0-4); Lymphocytes # 1.4 K/mcL (0.6-4.6); Lymphocytes % 14.4 %; Mean Corpuscular HGB Conc 34.6 g/dL (31.6-35.5); Mean Corpuscular Hemoglobin 31.7 pg (28.0-33.3); Mean Corpuscular Volume 91.5 fL (83.0-100.0); Mean Platelet Volume 10.5 fL (9.4-12.4); Monocytes # 0.9 K/mcL (0.0-1.3); Monocytes % 9.1 %; Neutrophils # 7.4 K/mcL (1.6-8.9); Platelet Count 145 K/mcL (140-400); Red Blood Count 3.06 M/mcL (3.82-4.97); Red Cell Distribution Width 12.5 % (11.5-14.5)
[2017-11-21] MEDS: Nitroglycerin 25 MG/250 ML INFUS..BTL IVC SCH ×2 (12:52→20:05)
[2017-11-21] MEDS: niCARdipine 40 MG/200 ML MLS IVC SCH ×2 (12:56→20:04)
[2017-11-21 12:58] LABS: Hemoglobin 9.7 g/dL (11.5-15.4)
[2017-11-21 13:01] LABS: INR 1.1
[2017-11-21 13:05] LABS: Activated Partial Thrombo Time 29.2 Seconds (26.0-36.0)
[2017-11-21 13:07] LABS: Prothrombin Time 12.3 Seconds (9.4-12.1)
[2017-11-21 13:18] LABS: BUN/Creatinine Ratio 27 (6-26); Blood Urea Nitrogen 20 mg/dL (8-23); Calcium 8.6 mg/dL (8.6-10.3); Carbon Dioxide 29 mEq/L (23-29); Chloride 109 mEq/L (98-107); Glucose 187 mg/dL (70-105); Magnesium 2.8 mg/dL (1.6-2.6); Osmolality,Calculated 298 (280-300); Potassium 4.2 mEq/L (3.5-5.1); Sodium 140 mEq/L (136-145); eGFR For African Americans > 60 (> 60); eGFR For Non-African Americans > 60 (> 60)
--- NOTE | 2017-11-21 13:47 | Anesthesia Evaluation Post Op ---
Date of Encounter: 11/21/17 Time of Encounter: 13:46 - Vital Signs Vital Signs: Vital Signs/O2 Sat, Most Current Temp Pulse Resp BP Pulse Ox 97.9 F 60 10 99/51 95 11/21/17 06:46 11/21/17 06:46 11/21/17 12:24 11/21/17 12:24 11/21/17 12:24 - Lungs Lungs: Clear Ascult./Percussion - Airway Airway: Intubated - Cardiovascular Regular Rate - Mental Status Mental Status: Sedated - Nausea Vomiting Nausea Vomiting: Not Present - Hydration Hydration: NPO Anes Supervising Prov Stmt: transferred to ICU in stable but critical condition.
[2017-11-21] MEDS: *HR* OxyCODONE/APAP 5/325 TABLET PO PRN ×3 (14:06→22:23)
[2017-11-21 15:45] LABS: ABG Base Excess 1 mEq/L (-2 to 3); ABG HCO3 27 mEq/L (21-27); ABG Oxygen Saturation 96 % (95-98); ABG PCO2 51 mmHg (35-45); ABG PH 7.34 pH Units (7.32-7.45); ABG PO2 88 mmHg (85-104); ABG TCO2 29 mEq/L (20-26); Blood Gas Modality CPAP/PS; Blood Gas PEEP 5 cm H2O; Blood Gas Pressure Support 5 cm H2O
[2017-11-21] MEDS: Loratadine 10 MG TABLET PO SCH (15:52)
[2017-11-21] MEDS: Insulin LISPRO 300 UNITS/3 ML VIAL SQ SCH ×2 (15:52→20:32)
[2017-11-21] MEDS: cloNIDine HCl 0.1 MG TABLET PO SCH ×3 (15:53→20:06)
[2017-11-21] MEDS: BuPROPion SR (12 HR) 150 MG TABLET PO SCH ×2 (15:53→20:07)
[2017-11-21] MEDS: ALPRAZolam 0.5 MG TABLET PO SCH ×4 (15:53→20:07)
[2017-11-21] MEDS: CeFAZolin Pre 2,000 MG/100 ML 2,000 MG/100 ML BAG IVPB SCH ×2 (15:58→23:17)
[2017-11-21] MEDS: Amiodarone Premix 360 MG/200 ML BAG IVC SCH (16:00)
[2017-11-21] MEDS: *HR* FentaNYL (PF) 100 MCG/2 ML VIAL IVP PRN ×2 (16:12→20:31)
[2017-11-21 16:35] LABS: ABG Base Excess 1 mEq/L (-2 to 3); ABG HCO3 28 mEq/L (21-27); ABG Oxygen Saturation 92 % (95-98); ABG PCO2 54 mmHg (35-45); ABG PH 7.32 pH Units (7.32-7.45); ABG PO2 71 mmHg (85-104); ABG TCO2 29 mEq/L (20-26)
[2017-11-21] MEDS: Ketorolac 15 MG/ML VIAL IVP SCH ×2 (17:32→23:17)
[2017-11-21] MEDS: Metoclopramide 10 MG/2 ML VIAL IVP SCH ×2 (17:32→23:17)
[2017-11-21] MEDS: Heparin 15,000 UNIT in 0.9 % Sodium Chloride 500 ML IV SCH ×2 (19:54→23:06)
[2017-11-21] MEDS: Dextrose 50 % in Water (Vial) 30 ML, Sodium Bicarbonate 20 MEQ, Lidocaine 1% 5 ML, Insu... TH SCH ×2 (19:54→23:05)
[2017-11-21] MEDS: hydroCHLOROthiazide 25 MG TABLET PO SCH (19:55)
--- NOTE | 2017-11-21 20:03 | Event Note ---
Date of Encounter: 11/21/17 Time of Encounter: 20:02 Went to patient's room approximately 10 AM for assessment and patient had already been taken for CABG per surgery. Patient will be followed by cardiothoracic surgery post op in the ICU
[2017-11-21 20:09] LABS: Basophils % 0.2 %; Eosinophils % 0.1 %; Hematocrit 29.2 % (35.3-44.9); Hemoglobin 10.1 g/dL (11.5-15.4); Immature Granulocytes % 0.7 % (0-4); Lymphocytes # 0.6 K/mcL (0.6-4.6); Lymphocytes % 5.7 %; Mean Corpuscular HGB Conc 34.6 g/dL (31.6-35.5); Mean Corpuscular Volume 92.4 fL (83.0-100.0); Monocytes # 0.9 K/mcL (0.0-1.3); Monocytes % 8.4 %; Neutrophils # 9.1 K/mcL (1.6-8.9); Nucleated Red Blood Cells 0.2 /100 WBC (0); Platelet Count 164 K/mcL (140-400); Red Blood Count 3.16 M/mcL (3.82-4.97); Red Cell Distribution Width 12.7 % (11.5-14.5); Segmented Neutrophils % 84.9 %
[2017-11-21] MEDS: traZODone 50 MG TABLET PO SCH (20:31)
[2017-11-21] MEDS: Pantoprazole 40 MG VIAL IVP SCH (20:32)
[2017-11-21] MEDS: 0.9 % Sodium Chloride 1,000 ML IVC SCH (20:32)
[2017-11-21 20:33] LABS: BUN/Creatinine Ratio 31 (6-26); Blood Urea Nitrogen 19 mg/dL (8-23); Carbon Dioxide 22 mEq/L (23-29); Chloride 114 mEq/L (98-107); Glucose 132 mg/dL (70-105); Magnesium 1.7 mg/dL (1.6-2.6); Osmolality,Calculated 306 (280-300); Potassium 3.4 mEq/L (3.5-5.1); Sodium 146 mEq/L (136-145); eGFR For African Americans > 60 (> 60); eGFR For Non-African Americans > 60 (> 60)
[2017-11-21] MEDS ORDERED: Chlorhexidine Rinse 15 ML MOUTHWASH MM SCH (21:00)
[2017-11-22] MEDS: Amiodarone Premix 360 MG/200 ML BAG IVC SCH (01:30)
[2017-11-22] MEDS: *HR* FentaNYL (PF) 100 MCG/2 ML VIAL IVP PRN (02:11)
[2017-11-22 03:22] LABS: Basophils % 0.4 %; Eosinophils % 0.6 %; Hemoglobin 10.1 g/dL (11.5-15.4); Immature Granulocytes % 0.4 % (0-4); Lymphocytes # 1.4 K/mcL (0.6-4.6); Lymphocytes % 20.2 %; Mean Corpuscular HGB Conc 34.8 g/dL (31.6-35.5); Mean Corpuscular Hemoglobin 31.9 pg (28.0-33.3); Mean Corpuscular Volume 91.5 fL (83.0-100.0); Mean Platelet Volume 10.3 fL (9.4-12.4); Monocytes # 0.8 K/mcL (0.0-1.3); Monocytes % 11.8 %; Neutrophils # 4.7 K/mcL (1.6-8.9); Platelet Count 141 K/mcL (140-400); Red Blood Count 3.17 M/mcL (3.82-4.97); Red Cell Distribution Width 12.6 % (11.5-14.5); Segmented Neutrophils % 66.6 %
[2017-11-22] MEDS: niCARdipine 40 MG/200 ML MLS IVC SCH (03:22)
[2017-11-22] MEDS: *HR* OxyCODONE/APAP 5/325 TABLET PO PRN ×4 (03:25→21:05)
[2017-11-22 03:28] LABS: INR 1.1; Prothrombin Time 11.8 Seconds (9.4-12.1)
[2017-11-22 03:30] LABS: Activated Partial Thrombo Time 31.5 Seconds (26.0-36.0)
[2017-11-22 03:47] LABS: BUN/Creatinine Ratio 29 (6-26); Blood Urea Nitrogen 20 mg/dL (8-23); Calcium 8.4 mg/dL (8.6-10.3); Carbon Dioxide 27 mEq/L (23-29); Chloride 106 mEq/L (98-107); Glucose 149 mg/dL (70-105); Magnesium 1.9 mg/dL (1.6-2.6); Osmolality,Calculated 289 (280-300); Potassium 3.8 mEq/L (3.5-5.1); Sodium 137 mEq/L (136-145); eGFR For African Americans > 60 (> 60); eGFR For Non-African Americans > 60 (> 60)
[2017-11-22] MEDS: Metoclopramide 10 MG/2 ML VIAL IVP SCH ×4 (05:15→23:34)
[2017-11-22] MEDS: Ketorolac 15 MG/ML VIAL IVP SCH ×4 (05:15→23:32)
--- NOTE | 2017-11-22 07:07 | Cardiothoracic Progress Note ---
Date of Encounter: 11/22/17 Time of Encounter: 07:04 - Assessment and plan (1) NSTEMI (non-ST elevated myocardial infarction) Current Visit: Yes Status: Acute The patient is recovering well from her CABG3. She is currently extubated and breathing comfortably. The arterial line, Olson catheter, and [place] catheter will be removed. She will be transferred to the stepdown unit when a bed is available. The assessment and plan as outlined above was discussed with the patient and/or family members who expressed understanding and agreement. All questions were answered. - Subjective Procedure(s) Performed: POD#1 S/P CABG3 Interval history: The patient remained hemodynamic stable overnight. She is currently extubated and breathing comfortably. She has no complaints. Vital Signs, Last 4 Hours Temp Pulse Resp BP Pulse Ox 11/22/17 06:00 99.2 F 77 16 111/46 98 11/22/17 05:00 98.9 F 80 20 121/60 98 11/22/17 04:00 99.4 F 82 18 110/57 95 11/22/17 03:28 20 95 Oxgyen Flow Rate Oxygen Flow Rate (LPM) 3 Clinical Data, last 8 Hours Output, Chest Tube Drainage 10 Amount [Mediastinal #1] Output, Chest Tube Drainage 10 Amount [Mediastinal #1] Output, Chest Tube Drainage 10 Amount [Mediastinal #1] Output, Chest Tube Drainage 22 Amount [Mediastinal #1] Output, Chest Tube Drainage 23 Amount [Mediastinal #1] Output, Chest Tube Drainage 12 Amount [Mediastinal #1] Output, Chest Tube Drainage 11 Amount [Mediastinal #1] Output, Chest Tube Drainage 0 Amount [Mediastinal #2] Output, Chest Tube Drainage 4 Amount [Mediastinal #2] Output, Chest Tube Drainage 4 Amount [Mediastinal #2] Output, Chest Tube Drainage 0 Amount [Mediastinal #2] Output, Chest Tube Drainage 0 Amount [Mediastinal #2] Output, Chest Tube Drainage 0 Amount [Mediastinal #2] Output, Chest Tube Drainage 0 Amount [Mediastinal #2] Weight 11/20/17 11/21/17 11/22/17 23:59 23:59 23:59 Weight 84.6 kg 82 kg 84.2 kg - Physical Examination General: Conversant, No Apparent Distress Neck: No JVD, Normal carotid pulses Cardiac: Reg Rate and Rhythm, Normal S1 and S2, No Murmur Incision: No signs of infection, Dry/intact dressing Sternum: Stable Chest tubes: Minimal drainage, Other (No air leak) Pacing Wires: In place Lungs: Normal Breath Sounds, No Wheeze, Rales, Rhonchi Neuro: Alert and responsive, No focal deficits noted Vascular: Normal capillary refill Musculoskeletal: No Chest Wall Tenderness Extremities: No Clubbing, No Cyanosis, No Edema - Labs 11/22/17 03:13 11/22/17 03:13 Lab Results, Last 24 hours 11/21/17 11/21/17 11/21/17 12:40 12:40 12:40 WBC 10.0 D Hgb 9.7 L D Hct 28.0 L Plt Count 145 INR 1.1 APTT 29.2 D Sodium 140 Potassium 4.2 Chloride 109 H Carbon Dioxide 29 BUN 20 Creatinine 0.74 Glucose 187 H Calcium 8.6 Magnesium 2.8 H 11/21/17 11/21/17 11/22/17 18:46 18:46 03:13 WBC 10.7 7.0 Hgb 10.1 L 10.1 L Hct 29.2 L 29.0 L Plt Count 164 141 INR APTT Sodium 146 H Potassium 3.4 L Chloride 114 H Carbon Dioxide 22 L BUN 19 Creatinine 0.61 Glucose 132 H Calcium 7.0 L Magnesium 1.7 11/22/17 11/22/17 03:13 03:13 WBC Hgb Hct Plt Count INR 1.1 APTT 31.5 Sodium 137 D Potassium 3.8 Chloride 106 Carbon Dioxide 27 BUN 20 Creatinine 0.69 Glucose 149 H Calcium 8.4 L Magnesium 1.9 - Imaging Chest Xray: image reviewed (No pneumothorax. Minimal atelectasis/infiltrates.) - VTE Documentation of Mechanical Device: Graduated compression elastic hosiery Consult Discharge Plan - Plan [facility]errals: [facility]Primary Care Provider[facility] -
[2017-11-22] MEDS ORDERED: *HR* Dextrose 50 % in Water (Syg) 50 ML SYRINGE IVP PRN (07:45)
[2017-11-22] MEDS ORDERED: Ondansetron 4 MG/2 ML VIAL IVP PRN (07:45)
[2017-11-22] MEDS ORDERED: *HR* FentaNYL (PF) 100 MCG/2 ML VIAL IVP PRN (07:45)
[2017-11-22] MEDS ORDERED: Dextrose 50 % in Water (Vial) 30 ML, Sodium Bicarbonate 20 MEQ, Lidocaine 1% 5 ML, Insu... TH SCH (07:45)
[2017-11-22] MEDS ORDERED: Insulin Regular, Human 100 UNIT/ML IV PRN (07:45)
[2017-11-22] MEDS ORDERED: Acetaminophen 325 MG TABLET PO PRN (07:45)
[2017-11-22] MEDS ORDERED: Bisacodyl 10 MG RECTAL SUPPOSITORY RC PRN (07:45)
[2017-11-22] MEDS ORDERED: Nitroglycerin 0.4 MG TAB.SUBL SL PRN (07:45)
[2017-11-22] MEDS ORDERED: D5% in Water 1,000 ML IVC PRN (07:45)
[2017-11-22] MEDS ORDERED: Naloxone 0.4 MG/ML INJ IVP PRN (07:45)
[2017-11-22] MEDS ORDERED: *HR* LORazepam 2 MG/ML VIAL IVP PRN ×3 (07:45→20:24)
[2017-11-22] MEDS ORDERED: Ipratropium/Albuterol Neb 3 ML IH PRN (07:45)
[2017-11-22] MEDS ORDERED: Dextrose Gel 15 GM/37.5 ML TUBE PO PRN ×2 (07:45)
[2017-11-22] MEDS ORDERED: Insulin Human Regular 100 UNIT in 0.9 % Sodium Chloride 100 ML IVC SCH (07:45)
[2017-11-22] MEDS: Folic Acid 1 MG TABLET PO SCH (08:32)
[2017-11-22] MEDS: *HR* GlipiZIDE XL (24 HR) 10 MG TABLET PO SCH (08:32)
[2017-11-22] MEDS: Thiamine (B-1) 100 MG TABLET PO SCH (08:32)
[2017-11-22] MEDS: BuPROPion SR (12 HR) 150 MG TABLET PO SCH ×2 (08:32→21:04)
[2017-11-22] MEDS: Loratadine 10 MG TABLET PO SCH (08:33)
[2017-11-22] MEDS: Vitamin B Complex/Vit C/Vit E 1 EACH TABLET PO SCH (08:33)
[2017-11-22] MEDS: Chlorhexidine Rinse 15 ML MOUTHWASH MM SCH ×2 (08:33→21:05)
[2017-11-22] MEDS: Aspirin Enteric Coated 81 MG Tablet PO SCH (08:33)
[2017-11-22] MEDS: ALPRAZolam 0.5 MG TABLET PO SCH ×4 (08:33→21:04)
[2017-11-22] MEDS: Furosemide 20 MG/2 ML VIAL IVP SCH ×2 (08:34→21:05)
[2017-11-22] MEDS ORDERED: Furosemide 20 MG/2 ML VIAL IVP SCH (09:00)
[2017-11-22] MEDS ORDERED: *HR* Amiodarone 200 MG TABLET PO SCH (09:00)
[2017-11-22] MEDS ORDERED: Aspirin Enteric Coated 81 MG Tablet PO SCH (09:00)
[2017-11-22] MEDS: Pantoprazole 40 MG VIAL IVP SCH (10:58)
[2017-11-22] MEDS: Insulin LISPRO 300 UNITS/3 ML VIAL SQ SCH ×3 (12:13→21:05)
[2017-11-22] MEDS: traZODone 50 MG TABLET PO SCH (21:04)
[2017-11-23] MEDS: *HR* OxyCODONE/APAP 5/325 TABLET PO PRN ×4 (02:02→20:32)
[2017-11-23] MEDS: Ketorolac 15 MG/ML VIAL IVP SCH ×3 (06:03→17:00)
[2017-11-23] MEDS: Metoclopramide 10 MG/2 ML VIAL IVP SCH ×3 (06:03→17:00)
--- NOTE | 2017-11-23 07:47 | Cardiothoracic Progress Note ---
Date of Encounter: 11/23/17 Time of Encounter: 07:46 - Assessment and plan (1) NSTEMI (non-ST elevated myocardial infarction) Current Visit: Yes Status: Acute The patient is recovering well from her CABG3. The chest tubes were removed. She will begin ambulating in the hallways today. The assessment and plan as outlined above was discussed with the patient and/or family members who expressed understanding and agreement. All questions were answered. - Subjective Procedure(s) Performed: POD#2 S/P CABG3 Interval history: The patient remained hemodynamic stable overnight. She is sitting in a chair at the bedside and is breathing comfortably. She has no complaints. Vital Signs, Last 4 Hours Temp Pulse Resp BP Pulse Ox 11/23/17 04:18 16 95 11/23/17 04:00 99.3 F 75 16 121/69 96 Oxgyen Flow Rate Oxygen Flow Rate (LPM) 2 Clinical Data, last 8 Hours Output, Chest Tube Drainage 25 Amount [Mediastinal #1] Output, Chest Tube Drainage 8 Amount [Mediastinal #2] Weight 11/21/17 11/22/17 11/23/17 23:59 23:59 23:59 Weight 82 kg 84.2 kg 85.5 kg - Physical Examination General: Conversant, No Apparent Distress Neck: No JVD, Normal carotid pulses Cardiac: Reg Rate and Rhythm, Normal S1 and S2, No Murmur Incision: No signs of infection, Dry/intact dressing Sternum: Stable Chest tubes: Minimal drainage, Other (No air leak) Lungs: Normal Breath Sounds, No Wheeze, Rales, Rhonchi Neuro: Alert and responsive, No focal deficits noted Vascular: Normal capillary refill Extremities: No Clubbing, No Cyanosis, No Edema - Labs 11/22/17 03:13 11/22/17 03:13 - VTE Documentation of Mechanical Device: Graduated compression elastic hosiery Consult Discharge Plan - Plan Referrals: [facility] [Primary Care Provider] -
[2017-11-23] MEDS: BuPROPion SR (12 HR) 150 MG TABLET PO SCH ×2 (08:05→20:32)
[2017-11-23] MEDS: Aspirin Enteric Coated 81 MG Tablet PO SCH (08:05)
[2017-11-23] MEDS: Folic Acid 1 MG TABLET PO SCH (08:05)
[2017-11-23] MEDS: Loratadine 10 MG TABLET PO SCH (08:05)
[2017-11-23] MEDS: ALPRAZolam 0.5 MG TABLET PO SCH ×4 (08:05→20:33)
[2017-11-23] MEDS: Vitamin B Complex/Vit C/Vit E 1 EACH TABLET PO SCH (08:05)
[2017-11-23] MEDS: Pantoprazole 40 MG VIAL IVP SCH (08:06)
[2017-11-23] MEDS: Thiamine (B-1) 100 MG TABLET PO SCH (08:06)
[2017-11-23] MEDS: Chlorhexidine Rinse 15 ML MOUTHWASH MM SCH ×2 (08:06→20:32)
[2017-11-23] MEDS: *HR* GlipiZIDE XL (24 HR) 10 MG TABLET PO SCH (08:06)
[2017-11-23] MEDS: Furosemide 20 MG/2 ML VIAL IVP SCH ×2 (08:06→20:32)
[2017-11-23] MEDS: Insulin LISPRO 300 UNITS/3 ML VIAL SQ SCH ×4 (08:07→20:41)
[2017-11-23] MEDS ORDERED: Preparation H Ointment 30 GM TUBE RC PRN (09:13)
[2017-11-23] MEDS ORDERED: Preparation H Ointment 30 GM TUBE TP PRN (09:15)
[2017-11-23] MEDS ORDERED: PREPARATION H RC PRN (09:33)
[2017-11-23] MEDS: Gabapentin 400 MG CAPSULE PO SCH ×3 (10:12→20:33)
[2017-11-23] MEDS: traZODone 50 MG TABLET PO SCH (20:33)
[2017-11-24] MEDS: Ketorolac 15 MG/ML VIAL IVP SCH ×4 (00:06→17:22)
[2017-11-24] MEDS: Metoclopramide 10 MG/2 ML VIAL IVP SCH ×4 (00:06→17:22)
[2017-11-24] MEDS: *HR* OxyCODONE/APAP 5/325 TABLET PO PRN ×4 (04:42→19:49)
--- NOTE | 2017-11-24 07:28 | Cardiothoracic Progress Note ---
Date of Encounter: 11/24/17 Time of Encounter: 07:26 - Assessment and plan (1) Elevated troponin Current Visit: Yes Status: Acute The assessment and plan as outlined above was discussed with the patient and/or family members who expressed understanding and agreement. All questions were answered. Hopefully, the patient can be discharged to the [place] [facility] in the next 1-2 days. We will add Levemir insulin at night for high blood sugars. - Subjective Interval history: The patient has no complaints. Vital Signs, Last 4 Hours Resp Pulse Ox 11/24/17 03:58 18 94 Oxgyen Flow Rate Oxygen Flow Rate (LPM) 2 Weight 11/22/17 11/23/17 11/24/17 23:59 23:59 23:59 Weight 84.2 kg 85.5 kg 84 kg Lungs are clear to percussion and auscultation. Heart is in a normal sinus rhythm. All incisions are healing well without signs of infection and the sternum is stable. - Labs 11/22/17 03:13 11/22/17 03:13 - VTE Documentation of Mechanical Device: Graduated compression elastic hosiery Consult Discharge Plan - Plan Referrals: Shailesh James DO [Partnered Physician] - (SENT WEB REQUEST ON 11-23-17 @ [phone]) Kiko Lopez MD [Partnered Physician] - (SENT WEB REQUEST ON 11-23-17 @ [phone]) [facility] [Primary Care Provider] - (CLOSED TODAY DUE TO THE HOLIDAY)
[2017-11-24] MEDS: Furosemide 20 MG/2 ML VIAL IVP SCH ×2 (08:19→21:28)
[2017-11-24] MEDS: Insulin LISPRO 300 UNITS/3 ML VIAL SQ SCH ×4 (08:19→21:28)
[2017-11-24] MEDS: Vitamin B Complex/Vit C/Vit E 1 EACH TABLET PO SCH (08:20)
[2017-11-24] MEDS: Pantoprazole 40 MG VIAL IVP SCH (08:20)
[2017-11-24] MEDS: Aspirin Enteric Coated 81 MG Tablet PO SCH (08:20)
[2017-11-24] MEDS: Loratadine 10 MG TABLET PO SCH (08:20)
[2017-11-24] MEDS: Folic Acid 1 MG TABLET PO SCH (08:20)
[2017-11-24] MEDS: Chlorhexidine Rinse 15 ML MOUTHWASH MM SCH ×2 (08:20→21:28)
[2017-11-24] MEDS: Thiamine (B-1) 100 MG TABLET PO SCH (08:20)
[2017-11-24] MEDS: *HR* GlipiZIDE XL (24 HR) 10 MG TABLET PO SCH (08:20)
[2017-11-24] MEDS: BuPROPion SR (12 HR) 150 MG TABLET PO SCH ×2 (08:20→21:27)
[2017-11-24] MEDS: Gabapentin 400 MG CAPSULE PO SCH ×3 (08:20→21:27)
[2017-11-24] MEDS: ALPRAZolam 0.5 MG TABLET PO SCH ×4 (08:32→21:27)
[2017-11-24] MEDS ORDERED: PREPARATION H RC PRN (14:07)
[2017-11-24] MEDS ORDERED: Insulin DETEMIR 100 UNIT/ML X5UNITS SQ SCH (21:00)
[2017-11-24] MEDS: traZODone 50 MG TABLET PO SCH (21:27)
[2017-11-25] MEDS: Ketorolac 15 MG/ML VIAL IVP SCH ×3 (00:18→11:22)
[2017-11-25] MEDS: *HR* OxyCODONE/APAP 5/325 TABLET PO PRN ×3 (00:18→11:20)
[2017-11-25 05:46] LABS: Basophils % 0.6 %; Eosinophils # 0.3 K/mcL (0.0-0.6); Eosinophils % 3.8 %; Hematocrit 27.2 % (35.3-44.9); Hemoglobin 8.8 g/dL (11.5-15.4); Lymphocytes # 1.6 K/mcL (0.6-4.6); Lymphocytes % 22.8 %; Mean Corpuscular HGB Conc 32.4 g/dL (31.6-35.5); Mean Corpuscular Hemoglobin 30.7 pg (28.0-33.3); Mean Corpuscular Volume 94.8 fL (83.0-100.0); Mean Platelet Volume 10.7 fL (9.4-12.4); Monocytes # 0.8 K/mcL (0.0-1.3); Monocytes % 10.9 %; Neutrophils # 4.4 K/mcL (1.6-8.9); Platelet Count 218 K/mcL (140-400); Red Blood Count 2.87 M/mcL (3.82-4.97); Red Cell Distribution Width 12.8 % (11.5-14.5); Segmented Neutrophils % 60.9 %
[2017-11-25 06:00] LABS: BUN/Creatinine Ratio 36 (6-26); Blood Urea Nitrogen 32 mg/dL (8-23); Calcium 9.6 mg/dL (8.6-10.3); Carbon Dioxide 31 mEq/L (23-29); Chloride 102 mEq/L (98-107); Glucose 271 mg/dL (70-105); Osmolality,Calculated 302 (280-300); Sodium 138 mEq/L (136-145); eGFR For African Americans > 60 (> 60); eGFR For Non-African Americans > 60 (> 60)
--- NOTE | 2017-11-25 06:38 | Electrocardiograph Report ---
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
--- NOTE | 2017-11-25 07:15 | Cardiothoracic Progress Note ---
Date of Encounter: 11/25/17 Time of Encounter: 07:13 - Assessment and plan (1) Elevated troponin Current Visit: Yes Status: Acute The patient's blood sugars have been high. We added Levemir 20 units subcutaneous last night. The patient states that she does not want to go on insulin at home. Hopefully, she can be discharged to the rehabilitation center soon. - Subjective Interval history: The patient has no complaints and states that she is ready to go to the [place] [facility]. Vital Signs, Last 4 Hours Temp Pulse Resp BP Pulse Ox 11/25/17 06:51 98.6 F 81 16 126/56 87 11/25/17 04:35 17 96 11/25/17 03:15 98.6 F 77 18 119/58 90 Oxgyen Flow Rate Oxygen Flow Rate (LPM) 3 Clinical Data, last 8 Hours Output, Urine Amount 300 Output, Urine Amount 600 Weight 11/23/17 11/24/17 11/25/17 23:59 23:59 23:59 Weight 85.5 kg 84 kg 84.3 kg Lungs are clear to percussion and auscultation. Heart is in a normal sinus rhythm. All incisions are healing well without signs of infection and the sternum is stable. The pacing wires were removed. - Labs 11/25/17 04:41 11/25/17 04:41 Lab Results, Last 24 hours 11/25/17 11/25/17 04:41 04:41 WBC 7.2 Hgb 8.8 L Hct 27.2 L Plt Count 218 D Sodium 138 Potassium 4.0 Chloride 102 Carbon Dioxide 31 H BUN 32 H Creatinine 0.90 Glucose 271 H Calcium 9.6 - VTE Documentation of Mechanical Device: Graduated compression elastic hosiery Consult Discharge Plan - Plan Referrals: Shailesh James DO [Partnered Physician] - (office will call patient at home with follow up appointment) Kiko Lopez MD [Partnered Physician] - 12/17/17 1:40 pm () [facility]Primary Care Provider[facility] - (patient is going to [place] [facility] no PCP appointment needed)
[2017-11-25] MEDS: Vitamin B Complex/Vit C/Vit E 1 EACH TABLET PO SCH (07:43)
[2017-11-25] MEDS: Chlorhexidine Rinse 15 ML MOUTHWASH MM SCH (07:43)
[2017-11-25] MEDS: Gabapentin 400 MG CAPSULE PO SCH (07:43)
[2017-11-25] MEDS: Insulin LISPRO 300 UNITS/3 ML VIAL SQ SCH ×2 (07:43→11:22)
[2017-11-25] MEDS: Aspirin Enteric Coated 81 MG Tablet PO SCH (07:44)
[2017-11-25] MEDS: *HR* GlipiZIDE XL (24 HR) 10 MG TABLET PO SCH (07:44)
[2017-11-25] MEDS: Thiamine (B-1) 100 MG TABLET PO SCH (07:44)
[2017-11-25] MEDS: Folic Acid 1 MG TABLET PO SCH (07:44)
[2017-11-25] MEDS: BuPROPion SR (12 HR) 150 MG TABLET PO SCH (07:44)
[2017-11-25] MEDS: Loratadine 10 MG TABLET PO SCH (07:44)
[2017-11-25] MEDS: ALPRAZolam 0.5 MG TABLET PO SCH (07:44)
[2017-11-25] MEDS: Pantoprazole 40 MG VIAL IVP SCH (07:44)
[2017-11-25 11:05] VITALS: BP 140/70
--- NOTE | 2017-11-25 13:39 | Discharge Summary ---
Orders not resulted at time of discharge: Pending orders 11/20/17 10:13 Left Heart Cath [CL Cardiac Catheterization] [CL] Routine 11/20/17 16:25 Red Blood Cells [BBK] Routine Type and Screen [BBK] Routine Date of Encounter: 11/25/17 Time of Encounter: 13:31 - Discharge Diagnosis (1) NSTEMI (non-ST elevated myocardial infarction) Priority: Primary Status: Acute - Hospital Course Hospital course: Ms. Causey is a 61 year old type II diabetic, hypertensive lady with hypercholesterolemia, a long smoking history, and a strong family history of CAD. Approximately 1 month ago the patient developed nonradiating substernal chest pain. This symptom has progressed during the last 1/2-2 weeks and now radiates into her neck and jaw and then down her left arm. She also has an associated headache and nausea; however, denies any shortness of breath, dyspnea on exertion, palpitations, or syncope. Yesterday, the patient had a severe episode of substernal chest pain, nausea, and vomiting. She was evaluated at the [facility] and found to have elevated troponin I levels consistent with an acute NSTEMI. She was treated medically and then transferred to [facility] for further cardiac care. The patient underwent cardiac catheterization today was found to have severe 3 vessel CAD and an LVEF 55%. In particular the patient has an 80-90% distal LAD lesion, an 80% proximal LCx lesion, and a 99% mid RCA lesion (small vessel). The patient has been recommended for CABG. The patient underwent CABG 3 on 11/21/2017. Her postoperative course was uncomplicated and she was transferred to the stepdown unit on POD #2. The patient was ambulating without complaints of substernal chest pain or shortness of breath. She was discharged to the [facility] inpatient rehabilitation unit on POD #4. - Time Spent with Patient Total time spent providing and/or coordinating discharge services: - Discharge Medications Prescriptions: Metoprolol [Lopressor] 25 mg PO BID #60 tablet Oxycodone HCl/Acetaminophen [Percocet 5-325 mg Tablet] 1 each PO Q4H PRN 7 Days #42 tablet PRN Reason: Pain Rosuvastatin [Crestor] 40 mg PO HS #30 tablet Home Medications: ALPRAZolam [Xanax 0.5 MG Tablet] 0.5 mg PO QID 11/19/17 [History] Alendronate Sodium [Fosamax] 70 mg PO QWEEK 11/19/17 [History] Aspirin [Lo-Dose Aspirin EC] 81 mg PO DAILY 11/19/17 [History] Bisacodyl [Dulcolax] 10 mg RC DAILY PRN 11/19/17 [History] Cetirizine HCl [24Hour Allergy] 10 mg PO DAILY 11/19/17 [History] Docusate [Colace] 100 mg PO BID 11/19/17 [History] GlipiZIDE [Glipizide ER] 10 mg PO DAILY 11/19/17 [History] Ibuprofen [Advil] 200 mg PO DAILY PRN 11/19/17 [History] Levothyroxine [Synthroid] [place] [address]/19/17 [History] Lisinopril [Zestril] 20 mg PO DAILY 11/19/17 [History] Omeprazole [PriLOSEC] 20 mg PO BIDAC 11/19/17 [History] Ranitidine HCl [Acid Workers Compensation Attorney] 150 mg PO HS 11/19/17 [History] Saxagliptin HCl [Onglyza] 5 mg PO BID 11/19/17 [History] Trazodone HCl 200 mg PO HS 11/19/17 [History] buPROPion HCl [Zyban] 150 mg PO BID 11/19/17 [History] cloNIDine HCl [Clonidine HCl] 0.2 mg PO TID 11/19/17 [History] hydroCHLOROthiazide [Hydrochlorothiazide] 25 mg PO DAILY 11/19/17 [History] Metoprolol [Lopressor] 25 mg PO BID #60 tablet 11/25/17 [Rx] Oxycodone HCl/Acetaminophen [Percocet 5-325 mg Tablet] 1 each PO Q4H PRN 7 Days #42 tablet 11/25/17 [Rx] Rosuvastatin [Crestor] 40 mg PO HS #30 tablet 11/25/17 [Rx] Allergies/Adverse Reactions: 3 Allergy/AdvReac Type Severity Reaction Status Date / Time metformin AdvReac See Verified 11/19/17 16:27 Comments Date of admission: 11/19/17 16:57 [facility] care physician: [facility]CP [facility] Consults: 11/20/17 15:32 Consult to Grinder Set Up Operator Thread Tool [CONS] Stat Reason for SW Consult: Needs POA papers for open heart surgery in am. 11/21/17 12:09 Consult to Cardiac Rehabilitation-Phase1 [CONS] Routine Comment: Reason for Consult: Post open heart Call Completed: Yes 11/23/17 09:19 Consult to Grinder Set Up Operator Thread Tool [CONS] Routine Reason for SW Consult: EXPECTED/ESTIMATED D/C DATE FOR Thursday11-26-17. [facility] 11/24/17 12:05 Consult to Occupational Therapy [CONS] Routine Comment: Evaluate, develop and implement POC Reason for Consult: s/p CABG, [facility] Does patient have active BEDREST order?: No Is patient medically & hemodynamically stable?: Yes Patient assessed for mobility or mobilized this visit?: Yes Consult to Physical Therapy [CONS] Routine Comment: Evaluate, develop and implement POC Reason for Consult: s/p CABG, [facility] Does patient have active BEDREST order?: No Is patient medically & hemodynamically stable?: Yes Patient assessed for mobility or mobilized this visit?: Yes Procedure(s) Performed: 1. Cardiac catheterization performed 11/20/2017. 2. CABG3 (ADAM to LAD, SVG to OM1, SVG to PDA) performed 11/21/2017. 3. Endoscopic vein harvesting, greater saphenous vein from left lower extremity performed 11/21/2017. Discharging clinician: Kiko Lopez Anticipated date of discharge: 11/25/17 Physical Examination Vital Signs, Last 4 Hours Temp Pulse Resp BP Pulse Ox 11/25/17 11:03 98.7 F 72 19 140/70 92 General: Conversant, No Apparent Distress HEENT: Atraumatic, Normocephaly, Trachea midline Neck: No JVD, Normal carotid pulses Cardiac: Reg Rate and Rhythm, Normal S1 and S2, No Murmur Lungs: Normal Breath Sounds, No Wheeze, Rales, Rhonchi Neuro: Alert and responsive, No focal deficits noted Vascular: Normal capillary refill Abdomen: Soft, Non-tender Skin: No rashes noted on visualized skin Musculoskeletal: No Chest Wall Tenderness Extremities: No Clubbing, No Cyanosis, No Edema - Patient Status Disposition: Transfer Inpatient Rehab Fac Condition: Good Functional capacity at discharge: independent ambulation Overall status at discharge: patient is progressing back to baseline - Discharge Instructions Instructions: Coronary Artery Bypass Graft (DC), Sternal Precautions (GEN) Follow Up With: Shailesh James DO [Partnered Physician] - (office will call patient at home with follow up appointment) Kiko Lopez MD [Partnered Physician] - 12/17/17 1:40 pm () [facility] Care Provider[facility] - (patient is going to [place] re[facility] no PCP appointment needed) - Diet and Activity Activity: sternal precautions, no driving for four weeks, no lifting greater than 10 pounds for eight weeks Diet: diabetic diet Open Heart Registry Aspirin Cont/Prescribed at DC: Yes Beta Claude Cont/Prescribed at DC: Yes Statin Cont/Prescribed at DC: Yes NORMAN/ARB Cont/Prescribed at DC: Not indicated (LVEF greater than 50%) - VTE Documentation of Mechanical Device: Graduated compression elastic hosiery
--- NOTE | 2017-11-25 13:43 | Physician Discharge Referral ---
ExtendedCare Referral Info Transfer To: [facility] Inpatient Rehabilitation Unit Provider in Charge after Transfer: PCP Institutional Level of Care: Skilled - Diagnosis (1) NSTEMI (non-ST elevated myocardial infarction) Priority: Primary Status: Acute Prognosis: Good Aware of Diagnosis: Patient Aware of Prognosis: Patient - Transfer Medications Prescriptions: Metoprolol [Lopressor] 25 mg PO BID #60 tablet Oxycodone HCl/Acetaminophen [Percocet 5-325 mg Tablet] 1 each PO Q4H PRN 7 Days #42 tablet PRN Reason: Pain Rosuvastatin [Crestor] 40 mg PO HS #30 tablet Home Medications: ALPRAZolam [Xanax 0.5 MG Tablet] 0.5 mg PO QID 11/19/17 [History] Alendronate Sodium [Fosamax] 70 mg PO QWEEK 11/19/17 [History] Aspirin [Lo-Dose Aspirin EC] 81 mg PO DAILY 11/19/17 [History] Bisacodyl [Dulcolax] 10 mg RC DAILY PRN 11/19/17 [History] Cetirizine HCl [24Hour Allergy] 10 mg PO DAILY 11/19/17 [History] Docusate [Colace] 100 mg PO BID 11/19/17 [History] GlipiZIDE [Glipizide ER] 10 mg PO DAILY 11/19/17 [History] Ibuprofen [Advil] 200 mg PO DAILY PRN 11/19/17 [History] Levothyroxine [Synthroid] 50 mcg PO 0630 11/19/17 [History] Lisinopril [Zestril] 20 mg PO DAILY 11/19/17 [History] Omeprazole [PriLOSEC] 20 mg PO BIDAC 11/19/17 [History] Ranitidine HCl [Acid Surgery Consultant] 150 mg PO HS 11/19/17 [History] Saxagliptin HCl [Onglyza] 5 mg PO BID 11/19/17 [History] Trazodone HCl 200 mg PO HS 11/19/17 [History] buPROPion HCl [Zyban] 150 mg PO BID 11/19/17 [History] cloNIDine HCl [Clonidine HCl] 0.2 mg PO TID 11/19/17 [History] hydroCHLOROthiazide [Hydrochlorothiazide] 25 mg PO DAILY 11/19/17 [History] Metoprolol [Lopressor] 25 mg PO BID #60 tablet 11/25/17 [Rx] Oxycodone HCl/Acetaminophen [Percocet 5-325 mg Tablet] 1 each PO Q4H PRN 7 Days #42 tablet 11/25/17 [Rx] Rosuvastatin [Crestor] 40 mg PO HS #30 tablet 11/25/17 [Rx] Allergies/Adverse Reactions: 3 Allergy/AdvReac Type Severity Reaction Status Date / Time metformin AdvReac See Verified 11/19/17 16:27 Comments - Respiratory Orders Smoking Cessation: Smoking cessation has been advised. For more information, call the [place] Tobacco Quit Line at 4-490-HPOH-NOW. - Ancillary Orders May use pressure relief devices daily prn, May go on VITALY w/family/respon republican w /meds at nurse discretion PRN, May have alcoholic beverages, May consult with Dentist, Supervisor Whipped Topping, Drying Machine Operator Package Yarns PRN - Advance Directives Code Status: Full Code - Mobility Orders Ambulate - Rehabiliation Orders Rehab Potential: Good Rehab Orders: Sternal Precautions, ROM Exercises, Evaluation for Physical Therapy, Evaluation for Occupational Therapy - Treatments Skin tear care topically daily PRN per policy, May check for fecal impaction rectally daily PRN, Fleet enema rectally every other day PRN cleansing purposes - Diet Orders Cardiac CERTIFICATION: I certify that the transfer of the above named patient to an Extended Care Facility is necessary for the continuing treatment of the diagnosis listed. The above information is true and accurate reflection of patient's current condition. Confidential - Redisclosure prohibited without a patient's written consent.
== END 2017-11-25 11:52 | DRG 234 ==
LOC: EMEROO 14:20 → 3BNU 14:20 → ICNU 11-21 09:15 → 2NNU 11-22 18:10
PROVIDERS: ADMIT Hospitalist; ATTEND Hospitalist